=== PATIENT | male | born 1935 | race Caucasian/White ===

== ENCOUNTER 2019-03-30 16:42 | Inpatient (IN) | payer MEDICARE, OTHER ==
[2019-03-30 17:35] LABS: ABSOLUTE LYMPHOCYTES (AUTO) 0.8 10^3/uL (0.5-4.7); ABSOLUTE MONOCYTES (AUTO) 0.9 10^3/uL (0.1-1.4); ABSOLUTE NEUT (AUTO) 10.6 10^3/uL (1.7-8.2); BASOPHILS % (AUTO) 0.2 % (0-2); EOSINOPHILS % (AUTO) 0.1 % (0-6); HEMATOCRIT 41.2 % (37.9-51.0); HEMOGLOBIN 13.9 g/dL (13.5-17.0); LYMPHOCYTES % (AUTO) 6.2 % (13-45); MEAN CORPUSCULAR HEMOGLOBIN 32.7 pg (27.0-33.4); MEAN CORPUSCULAR HGB CONC 33.6 g/dL (32.0-36.0); MEAN CORPUSCULAR VOLUME 97 fl (80-97); MONOCYTES % (AUTO) 7.7 % (3-13); PLATELET COUNT 274 10^3/uL (150-450); RED BLOOD COUNT 4.25 10^6/uL (4.35-5.55); RED CELL DISTRIBUTION WIDTH 13.4 % (11.5-14.0); SEGMENTED NEUTROPHILS % (AUTO) 85.8 % (42-78); TOTAL CELLS COUNTED % (AUTO) 100 %; WHITE BLOOD COUNT 12.4 10^3/uL (4.0-10.5)
[2019-03-30] MEDS ORDERED: NORMAL SALINE IV ONE (17:49)
[2019-03-30 17:54] LABS: ALBUMIN 3.9 g/dL (3.5-5.0); ALKALINE PHOSPHATASE 46 U/L (38-126); ANION GAP 8 (5-19); ASPARTATE AMINO TRANSFERASE 295 U/L (17-59); BILIRUBIN,TOTAL 1.5 mg/dL (0.2-1.3); BLOOD UREA NITROGEN 25 mg/dL (7-20); CALCIUM 9.7 mg/dL (8.4-10.2); CARBON DIOXIDE 31 mmol/L (22-30); CHLORIDE 102 mmol/L (98-107); GLUCOSE 110 mg/dL (75-110); POTASSIUM 3.7 mmol/L (3.6-5.0); TOTAL PROTEIN 6.5 g/dL (6.3-8.2)
[2019-03-30 18:13] LABS: VENOUS BLOOD BASE EXCESS -1.3 mmol/L; VENOUS BLOOD HCO3 22.8 mmol/L (20-32); VENOUS BLOOD PCO2 36.3 mmHg (35-63); VENOUS BLOOD PH 7.42 (7.30-7.42)
[2019-03-30 18:27] LABS: AMORPHOUS SEDIMENT,URINE TRACE /HPF; APPEARANCE,URINE CLOUDY; BILIRUBIN,URINE NEGATIVE (NEGATIVE); COLOR,URINE AMBER; GLUCOSE, URINE NEGATIVE (NEGATIVE); KETONES,URINE TRACE mg/dL (NEGATIVE); LEUKOCYTE ESTERASE,URINE LARGE (NEGATIVE); NITRITE,URINE NEGATIVE (NEGATIVE); PROTEIN,URINE 100 mg/dL (NEGATIVE); UROBILINOGEN,URINE NEGATIVE mg/dL (<2.0)
--- NOTE | 2019-03-30 18:49 | RADIOLOGY REPORT (SQ) ---
EXAM DESCRIPTION: CT HEAD WITHOUT COMPLETED DATE/TIME: 03/30/2019 6:29 pm REASON FOR STUDY: fall/pain COMPARISON: None. TECHNIQUE: Axial images acquired through the brain without intravenous contrast. Images reviewed wi th bone, brain and subdural windows. Additional sagittal and coronal reconstructions were generated. Images stored on PACS. All CT scanners at this facility use dose modulation, iterative reconstruction, and/or weight based d osing when appropriate to reduce radiation dose to as low as reasonably achievable (ALARA). [facility]: Dose Right [facility]: CareDose [facility]: Dose Right [facility]: Teradose 4D [facility]: Smart [employer] RADIATION DOSE: CT Rad equipment meets quality standard of care and radiation dose reduction techniq ues were employed. CTDIvol: 53.2 mGy. DLP: 991 mGy-cm. mGy. LIMITATIONS: Artifact from DBS electrodes FINDINGS: VENTRICLES: Normal size and contour. CEREBRUM: No masses. No hemorrhage. No midline shift. No evidence for acute infarction. Normal gra y/white matter differentiation. No areas of low density in the white matter. CEREBELLUM: No masses. No hemorrhage. No alteration of density. No evidence for acute infarction. EXTRAAXIAL SPACES: No fluid collections. No masses. ORBITS AND GLOBE: No intra- or extraconal masses. Normal contour of globe without masses. CALVARIUM: No fracture. PARANASAL SINUSES: No fluid or mucosal thickening. SOFT TISSUES: No mass or hematoma. OTHER: Deep brain stimulation electrodes are present. . IMPRESSION: NO ACUTE INTRACRANIAL IMAGING FINDINGS. EVIDENCE OF ACUTE STROKE: NO. COMMENT: Quality ID # [id number]: Final reports with documentation of one or more dose reduction techniques (e.g., Automated exposure control, adjustment of the mA and/or kV according to patient size, use of iterative reconstruction technique) TECHNICAL DOCUMENTATION: JOB ID: [id number] [employer]- All Rights Reserved Reading location - IP/workstation name: [email or web address]
--- NOTE | 2019-03-30 18:58 | RADIOLOGY REPORT (SQ) ---
EXAM DESCRIPTION: PELVIS AP COMPLETED DATE/TIME: 03/30/2019 6:31 pm REASON FOR STUDY: fall/pain COMPARISON: None. NUMBER OF VIEWS: One view TECHNIQUE: AP Pelvis LIMITATIONS: None. FINDINGS: MINERALIZATION: Normal. HIPS: No acute fracture or dislocation. No worrisome bone lesions. PELVIS AND SACRUM: No acute fracture or dislocation. No worrisome bone lesions. PUBIS AND ISCHIUM: No acute fracture. LOWER LUMBAR SPINE: No significant findings as visualized. SOFT TISSUES: No findings. OTHER: No other significant finding. IMPRESSION: NEGATIVE STUDY OF THE PELVIS. COMMENT: Pelvic fractures are often occult on plain radiographs. If strong clinical suspicion for f racture, recommend CT or MR. TECHNICAL DOCUMENTATION: JOB ID: [id number] [employer]- All Rights Reserved Reading location - IP/workstation name: [email or web address]
[2019-03-30] MEDS ORDERED: CEFTRIAXONE 1 GM/D5W RTU 1 GM/50 ML RTUPB IV ONE (19:00)
[2019-03-30] MEDS ORDERED: MAG HYDROX/AL HYDROX/SIMETH SUSP 30 ML UDCUP PO PRN (19:28)
[2019-03-30] MEDS ORDERED: MAGNESIUM HYDROXIDE SUSP 30 ML UDCUP PO PRN (19:28)
[2019-03-30] MEDS ORDERED: IPRATROPIUM/ALBUTEROL 0.5-2.5 MG/3 ML AMPUL NEB PRN (19:28)
--- NOTE | 2019-03-30 19:40 | ER Document Report ---
ED Fall - General Chief Complaint: Fall Stated Complaint: FALL/LEFT FACIAL SWELLING Time Seen by Provider: 03/30/19 17:22 Primary Care Provider: BLADIMIR JOHNSON MD [Primary Care Provider] - Follow up as needed Mode of Arrival: Medic Information source: Patient, Relative TRAVEL OUTSIDE OF THE [place] IN LAST 30 DAYS: No - HPI Notes: Patient is brought in by family. Patient's home health nurse went to check on patient today and found him naked lying on the floor with incontinence of urine. Patient is still confused here and has patient denies any pain at this time. No shortness of breath. Daughter is at the bedside and helps provide some of the history. She states the patient was last seen normal at approximately 4:15 PM yesterday. She states at that time she brought some food to him and left. She states that he was found at 1 PM today with the altered mental status and lying on the floor. Patient has had no previous similar episodes. He has had no previous confusion. Symptoms since 1 PM today have been constant. Nothing is made it better or worse. They have been moderate to severe. There is no radiation of the symptoms. - Related data Allergies/Adverse Reactions: latex [Latex] Allergy (Severe, Verified 01/12/16 17:48) Sulfa (Sulfonamide Antibiotics) Allergy (Verified 01/12/16 17:48) Past Medical History - General Information source: Patient, Relative - Social History Smoking Status: Never Smoker Frequency of alcohol use: None Drug Abuse: None Family History: Reviewed & Not Pertinent Patient has suicidal ideation: No Patient has homicidal ideation: No - Past Medical History Cardiac Medical History: Reports: Hx Hypertension - medicated Denies: Hx Coronary Artery Disease, Hx Heart Attack Pulmonary Medical History: Denies: Hx Asthma, Hx Bronchitis, Hx COPD, Hx Pneumonia Neurological Medical History: Denies: Hx Cerebrovascular Accident, Hx Seizures GI Medical History: Denies: Hx Hepatitis, Hx Hiatal Hernia, Hx Ulcer Musculoskeletal Medical History: Reports Hx Arthritis Infectious Medical History: Denies: Hx Hepatitis Past Surgical History: Reports: Hx Appendectomy. Denies: Hx Open Heart Surgery, Hx Pacemaker - Immunizations Hx Diphtheria, Pertussis, Tetanus Vaccination: Yes Review of Systems - Review of Systems -: Yes ROS unobtainable due to patient's medical condition - Cannot obtain review of symptoms due to patient's altered mental status Physical Exam - Vital signs Vitals: Resp Pulse Ox 17 97 03/30/19 17:16 03/30/19 17:16 Interpretation: Normal - General General appearance: Appears well, Alert In distress: None - HEENT Head: Normocephalic, Other - Patient has a mildly tender area of ecchymosis just superior to the left zygomatic arch Eyes: Normal Pupils: PERRL - Respiratory Respiratory status: No respiratory distress Chest status: Nontender Breath sounds: Normal Chest palpation: Normal - Cardiovascular Rhythm: Regular Heart sounds: Normal auscultation Murmur: No - Abdominal Inspection: Normal Distension: No distension Bowel sounds: Normal Tenderness: Nontender Organomegaly: No organomegaly - Back Back: Normal, Nontender - Extremities General upper extremity: Normal inspection, Nontender, Normal color, Normal ROM, Normal temperature General lower extremity: Normal inspection, Nontender, Normal color, Normal temperature, Other - Patient appeared to have some mild right hip tenderness with range of motion.. No: Ezekiel's sign - Neurological Cognition: Confused Orientation: Disoriented to time Bart Coma Scale Eye Opening: Spontaneous [place] Coma Scale Verbal: Confused [place] Coma Scale Motor: Obeys Commands [place] Coma Scale Total: 14 Speech: Normal Motor strength normal: LUE, RUE, LLE, RLE Sensory: Normal - Psychological Associated symptoms: Normal affect, Normal mood - Skin Skin Temperature: Warm Skin Moisture: Dry Skin Color: Other - Patient has some scattered ecchymosis Course - Re-evaluation Re-evalutation: 03/30/19 19:44 Patient presents with a history of being confused. Patient was hallucinating at home found naked and lying in urine. Patient does not appear to have suffered any traumatic injuries from the fall. He does have an obvious urinary tract infection. He has an elevated lactate but has had normal vitals so far. He will be resuscitated with fluids and antibiotics and admitted for further observation and treatment. Head CT was unremarkable. - Vital Signs Vital signs: Temp Pulse Resp BP Pulse Ox 97.4 F 18 118/67 98 03/30/19 17:31 03/30/19 17:31 03/30/19 17:31 03/30/19 17:53 - Laboratory Result Diagrams: 03/30/19 17:30 03/30/19 17:30 Laboratory results interpreted by me: 03/30/19 03/30/19 03/30/19 17:30 17:30 17:30 WBC 12.4 H RBC 4.25 L Lymph % (Auto) 6.2 L Absolute Neuts (auto) 10.6 H Seg Neutrophils % 85.8 H Carbon Dioxide 31 H BUN 25 H Lactic Acid 3.9 H Total Bilirubin 1.5 H AST 295 H Urine Protein Urine Ketones Urine Blood Ur Leukocyte Esterase 03/30/19 17:58 WBC RBC Lymph % (Auto) Absolute Neuts (auto) Seg Neutrophils % Carbon Dioxide BUN Lactic Acid Total Bilirubin AST Urine Protein 100 H Urine Ketones TRACE H Urine Blood LARGE H Ur Leukocyte Esterase LARGE H - Diagnostic Test Radiology reviewed: Image reviewed, Reports reviewed - EKG Interpretation by Me EKG shows normal: Sinus rhythm Rate: Normal - 71 Rhythm: NSR Heart block present: 1st Degree Critical Care Note - Critical Care Note Total time excluding time spent on procedures (mins): 50 Comments: Approximately 50 minutes of critical care time were spent on this patient. This included multiple reassessments. It included multiple discussions with patient and family. It included discussion with consultants. It included reviewing imaging and laboratories. Discharge - Discharge Clinical Impression: UTI (urinary tract infection) Qualifiers: Urinary tract infection type: acute cystitis Hematuria presence: with hematuria Qualified Code(s): N30.01 - Acute cystitis with hematuria Sepsis Qualifiers: Sepsis type: sepsis due to unspecified organism Sepsis acute organ dysfunction status: with acute organ dysfunction Severe sepsis acute organ dysfunction type: encephalopathy Severe sepsis shock status: without septic shock Qualified Code(s): A41.9 - Sepsis, unspecified organism; R65.20 - Severe sepsis without septic shock; G93.40 - Encephalopathy, unspecified Condition: Critical Disposition: ADMITTED INPATIENT Admitting Provider: Medardo (Hospitalist) Unit Admitted: Telemetry Referrals: BLADIMIR JOHNSON MD [Primary Care Provider] - Follow up as needed
[2019-03-30 20:42] LABS: CREATINE KINASE MB 46.5 ng/mL (<4.55)
[2019-03-30 20:46] LABS: TROPONIN I 0.055 ng/mL
[2019-03-30] MEDS: HEPARIN SOD (PORCINE) 5,000 UNIT/ML 1 ML VIAL SUBCUT SCH (22:05)
[2019-03-30] MEDS ORDERED: CARBIDOPA/LEVODOPA 25-100 MG TABLET PO ONE (23:45)
[2019-03-30] MEDS: LORAZEPAM 1 MG TABLET PO PRN (23:52)
[2019-03-30] MEDS: TRAZODONE HCL 50 MG TABLET PO PRN (23:52)
[2019-03-31] MEDS: NORMAL SALINE 1000 ML 1,000 ML IV PRN ×2 (00:43→02:45)
--- NOTE | 2019-03-31 01:26 | PDOC H&P ---
History of Present Illness Admission Date/PCP: 03/30/19 19:51 BLADIMIR JOHNSON MD Patient complains of: Altered mental status History of Present Illness: ARA VARGHESE is a 83 year old male with a past medical history of diabetes, dyslipidemia, Parkinson's and debility requiring a walker for ambulation. He presents after being found at home alone on the floor with confusion, last seen normal 19 hours prior. He is brought to the emergency room for evaluation and found to have multiple contusions of the distal upper extremity, left thigh, confusion, leukocytosis, pyuria and rhabdomyolysis. He started on empiric antibiotics, IV fluids and referred to the hospitalist for admission. Patient is a poor historian unable to provide significant history and subsequently taken from the emergency department provider and gleaned from medication list. He com plains of left thigh pain Past Medical History Cardiac Medical History: Reports: Hyperlipidema, Hypertension - medicated Denies: Coronary Artery Disease, Myocardial Infarction Pulmonary Medical History: Denies: Asthma, Bronchitis, Chronic Obstructive Pulmonary Disease (COPD), Pneumonia Neurological Medical History: Denies: Seizures GI Medical History: Denies: Hepatitis, Hiatal Hernia Musculoskeltal Medical History: Reports: Arthritis Hematology: Denies: Anemia, Sickle Cell Disease Past Surgical History Past Surgical History: Reports: Appendectomy Denies: Pacemaker Social History Information Source: Patient, [facility] Records Lives with: Alone Smoking Status: Never Smoker Frequency of Alcohol Use: None Drugs: None - Advance Directive Resuscitation Status: Full Code Family History Family History: Other - Unobtainable Parental Family History Reviewed: Yes Children Family History Reviewed: Yes Sibling(s) Family History Reviewed.: Yes Medication/Allergy Home Medications: Atorvastatin Calcium [Lipitor 20 mg Tablet] 20 mg PO DAILY 03/30/19 Benazepril HCl [Lotensin 10 Mg Tablet] 10 mg PO DAILY 03/30/19 Carbidopa/Levodopa [Sinemet 25-100 mg Tablet] 2 tab PO NOON 03/30/19 Carbidopa/Levodopa [Sinemet 25-100 mg Tablet] 2 tab PO QAM 03/30/19 Carbidopa/Levodopa [Sinemet 25-100 mg Tablet] 2 tab PO QPM 03/30/19 Cholecalciferol (Vitamin D3) [Vitamin D3 2000 unit Tablet] 2,000 unit PO DAILY 03/30/19 Citalopram Hydrobromide [Celexa 20 mg Tablet] 20 mg PO DAILY 03/30/19 Finasteride [Proscar 5 mg Tablet] 5 mg PO DAILY 03/30/19 Lorazepam [Ativan 1 mg Tablet] 1 mg PO HSP PRN 03/30/19 Metformin HCl [Metformin HCl ER] 500 mg PO BID 03/30/19 Multivitamin [Multiple Vitamins] 1 each PO DAILY 03/30/19 [place]-3/Dha/Epa/Fish Oil [Fish Oil 1,000 mg Softgel] 1 each PO DAILY 03/30/19 Tamsulosin HCl [Flomax 0.4 mg Cap.sr] 0.4 mg PO BID 03/30/19 Trazodone HCl [Desyrel 50 mg Tablet] 50 mg PO DAILYP PRN 03/30/19 Allergies/Adverse Reactions: latex [Latex] Allergy (Severe, Verified 01/12/16 17:48) Sulfa (Sulfonamide Antibiotics) Allergy (Verified 01/12/16 17:48) Review of Systems ROS unobtainable: Due to mental status - Unobtainable Physical Exam Vital Signs: Temp Pulse Resp BP Pulse Ox 98.6 F 64 16 117/50 L 94 03/31/19 00:27 03/31/19 00:27 03/31/19 00:27 03/31/19 00:27 03/31/19 00:27 Intake & Output 03/29/19 03/30/19 03/31/19 11:59 11:59 11:59 Intake Total 2265 Output Total 0 Balance 2265 Weight 68.7 kg General appearance: PRESENT: cooperative, disheveled, mild distress, thin, well- developed, well-nourished Head exam: PRESENT: atraumatic, normocephalic Eye exam: PRESENT: conjunctiva pink, EOMI, PERRLA. ABSENT: scleral icterus Ear exam: PRESENT: normal external ear exam Mouth exam: PRESENT: dry mucosa, tongue midline Neck exam: ABSENT: carotid bruit, JVD, lymphadenopathy, thyromegaly Respiratory exam: PRESENT: clear to auscultation noah. ABSENT: rales, rhonchi, wheezes Cardiovascular exam: PRESENT: RRR. ABSENT: diastolic murmur, rubs, systolic murmur Pulses: PRESENT: normal dorsalis pedis pul Vascular exam: PRESENT: normal capillary refill GI/Abdominal exam: PRESENT: normal bowel sounds, soft. ABSENT: distended, guarding, mass, organolmegaly, rebound, tenderness Rectal exam: PRESENT: deferred Extremities exam: PRESENT: other - Multiple contusion, ecchymosis of the distal upper extremity and lower extremity. Musculoskeletal exam: PRESENT: full ROM. ABSENT: ambulatory, deformity, dislocation Neurological exam: PRESENT: alert, altered, awake, oriented to person, CN II-XII grossly intact. ABSENT: motor sensory deficit Psychiatric exam: PRESENT: appropriate affect, normal mood. ABSENT: homicidal ideation, suicidal ideation Skin exam: PRESENT: abrasion, erythema, other - Multiple contusion, ecchymosis of the distal upper extremity and lower extremity. Results Laboratory Results: 03/30/19 17:30 03/30/19 17:30 03/30/19 03/30/19 03/30/19 17:30 17:30 17:30 WBC 12.4 H RBC 4.25 L Hgb 13.9 Hct 41.2 MCV 97 MCH 32.7 MCHC 33.6 RDW 13.4 Plt Count 274 Seg Neutrophils % 85.8 H VBG pH VBG pCO2 VBG HCO3 VBG Base Excess Sodium 140.8 Potassium 3.7 Chloride 102 Carbon Dioxide 31 H Anion Gap 8 BUN 25 H Creatinine 0.86 Est GFR ( Amer) > 60 Glucose 110 Lactic Acid 3.9 H Calcium 9.7 Total Bilirubin 1.5 H AST 295 H Alkaline Phosphatase 46 Total Protein 6.5 Albumin 3.9 TSH Urine Color Urine Appearance Urine pH Ur Specific [place] Urine Protein Urine Glucose (UA) Urine Ketones Urine Blood Urine Nitrite Ur Leukocyte Esterase Urine WBC (Auto) Urine RBC (Auto) 03/30/19 03/30/19 03/30/19 17:30 17:58 17:58 WBC RBC Hgb Hct MCV MCH MCHC RDW Plt Count Seg Neutrophils % VBG pH 7.42 VBG pCO2 36.3 VBG HCO3 22.8 VBG Base Excess -1.3 Sodium Potassium Chloride Carbon Dioxide Anion Gap BUN Creatinine Est GFR ( Amer) Glucose Lactic Acid Calcium Total Bilirubin AST Alkaline Phosphatase Total Protein Albumin TSH 1.24 Urine Color TODD Urine Appearance CLOUDY Urine pH 5.0 Ur Specific [place] 1.020 Urine Protein 100 H Urine Glucose (UA) NEGATIVE Urine Ketones TRACE H Urine Blood LARGE H Urine Nitrite NEGATIVE Ur Leukocyte Esterase LARGE H Urine WBC (Auto) >182 Urine RBC (Auto) 79 03/30/19 03/30/19 20:04 22:52 WBC RBC Hgb Hct MCV MCH MCHC RDW Plt Count Seg Neutrophils % VBG pH VBG pCO2 VBG HCO3 VBG Base Excess Sodium Potassium Chloride Carbon Dioxide Anion Gap BUN Creatinine Est GFR ( Amer) Glucose Lactic Acid 3.3 H 2.3 H Calcium Total Bilirubin AST Alkaline Phosphatase Total Protein Albumin TSH Urine Color Urine Appearance Urine pH Ur Specific [place] Urine Protein Urine Glucose (UA) Urine Ketones Urine Blood Urine Nitrite Ur Leukocyte Esterase Urine WBC (Auto) Urine RBC (Auto) 03/30/19 03/30/19 03/30/19 17:30 17:30 20:04 Creatine Kinase 20090 H CK-MB (CK-2) 46.50 H Troponin I 0.053 0.055 Impressions: Head CT 03/30/19 17:43 IMPRESSION: NO ACUTE INTRACRANIAL IMAGING FINDINGS. EVIDENCE OF ACUTE STROKE: NO. Pelvis X-Ray 03/30/19 17:43 IMPRESSION: NEGATIVE STUDY OF THE PELVIS. Assessment and Plan - Diagnosis (1) UTI (urinary tract infection) Qualifiers: Urinary tract infection type: acute cystitis Hematuria presence: with hematuria Qualified Code(s): N30.01 - Acute cystitis with hematuria Is this a current diagnosis for this admission?: Yes Plan: No recent antibiotics, IV fluid challenge, IV Rocephin, follow-up blood and urine culture (2) Sepsis Qualifiers: Sepsis type: sepsis due to unspecified organism Sepsis acute organ dysfunct ion status: with acute organ dysfunction Severe sepsis acute organ dysfunction type: encephalopathy Severe sepsis shock status: without septic shock Qualified Code(s): A41.9 - Sepsis, unspecified organism; R65.20 - Severe sepsis without septic shock; G93.40 - Encephalopathy, unspecified Is this a current diagnosis for this admission?: Yes Plan: Secondary to UTI, IV fluid challenge, follow-up lactic acid (3) Rhabdomyolysis Is this a current diagnosis for this admission?: Yes Plan: Secondary to fall with prolonged stasis versus hypertonicity of Sinemet withdrawal. IV fluid challenge, follow-up chemistry, continue Sinemet (4) Parkinsons Is this a current diagnosis for this admission?: Yes Plan: Carbidopa levodopa resumption as soon as possible (5) Debility Is this a current diagnosis for this admission?: Yes Plan: Follow-up physical therapy evaluation - Time Time Spent with patient: 25-34 minutes - Inpatient Certification Medical Necessity: Need Close Monitoring Due to Risk of Patient Decompensation
[2019-03-31 03:10] LABS: ABSOLUTE EOSINOPHILS # (AUTO) 0.1 10^3/uL (0.0-0.6); ABSOLUTE LYMPHOCYTES (AUTO) 1.1 10^3/uL (0.5-4.7); ABSOLUTE MONOCYTES (AUTO) 0.8 10^3/uL (0.1-1.4); ABSOLUTE NEUT (AUTO) 6.9 10^3/uL (1.7-8.2); BASOPHILS % (AUTO) 0.3 % (0-2); EOSINOPHILS % (AUTO) 0.7 % (0-6); HEMATOCRIT 33.2 % (37.9-51.0); LYMPHOCYTES % (AUTO) 12.2 % (13-45); MEAN CORPUSCULAR HEMOGLOBIN 33.2 pg (27.0-33.4); MEAN CORPUSCULAR HGB CONC 34.5 g/dL (32.0-36.0); MEAN CORPUSCULAR VOLUME 96 fl (80-97); MONOCYTES % (AUTO) 8.9 % (3-13); PLATELET COUNT 202 10^3/uL (150-450); RED BLOOD COUNT 3.45 10^6/uL (4.35-5.55); RED CELL DISTRIBUTION WIDTH 13.4 % (11.5-14.0); SEGMENTED NEUTROPHILS % (AUTO) 77.9 % (42-78); TOTAL CELLS COUNTED % (AUTO) 100 %; WHITE BLOOD COUNT 8.9 10^3/uL (4.0-10.5)
[2019-03-31 03:11] LABS: HEMOGLOBIN 11.5 g/dL (13.5-17.0)
[2019-03-31 03:22] LABS: BLOOD UREA NITROGEN 19 mg/dL (7-20); CARBON DIOXIDE 29 mmol/L (22-30); GLUCOSE 96 mg/dL (75-110); POTASSIUM 3.5 mmol/L (3.6-5.0)
[2019-03-31 03:33] LABS: CREATINE KINASE MB 26.3 ng/mL (<4.55); TROPONIN I 0.046 ng/mL
[2019-03-31 03:38] LABS: CREATINE KINASE 9282 U/L (55-170)
[2019-03-31 03:46] LABS: CHLORIDE 109 mmol/L (98-107)
[2019-03-31 03:47] LABS: ANION GAP 2 (5-19)
[2019-03-31] MEDS: HEPARIN SOD (PORCINE) 5,000 UNIT/ML 1 ML VIAL SUBCUT SCH ×2 (06:02→14:19)
--- NOTE | 2019-03-31 07:15 | EKG REPORT ---
SEVERITY:- ABNORMAL ECG - SINUS RHYTHM VENTRICULAR PREMATURE COMPLEX FIRST DEGREE AV BLOCK INCOMPLETE LEFT BUNDLE BRANCH BLOCK PROBABLE LEFT VENTRICULAR HYPERTROPHY : Confirmed by: Dewayne Ang MD 31-Mar-2019 07:14:25
[2019-03-31] MEDS ORDERED: CARBIDOPA/LEVODOPA 25-100 MG TABLET PO SCH ×3 (08:00→18:00)
[2019-03-31] MEDS: CITALOPRAM HYDROBROMIDE 20 MG TABLET PO SCH (09:48)
[2019-03-31] MEDS: DOCUSATE SODIUM 100 MG CAPSULE PO SCH ×2 (09:48→17:49)
[2019-03-31] MEDS: BENAZEPRIL HCL 10 MG TABLET PO SCH (09:48)
[2019-03-31 09:49] LABS: CREATINE KINASE MB 21.9 ng/mL (<4.55); TROPONIN I 0.041 ng/mL
[2019-03-31] MEDS: CARBIDOPA/LEVODOPA 25-100 MG TABLET PO SCH ×3 (09:49→17:49)
[2019-03-31] MEDS: FINASTERIDE 5 MG TABLET PO SCH (09:49)
[2019-03-31] MEDS ORDERED: ATORVASTATIN CALCIUM 20 MG TABLET PO SCH (10:00)
[2019-03-31] MEDS: ACETAMINOPHEN 325 MG TABLET PO PRN (10:05)
--- NOTE | 2019-03-31 13:03 | CDI QUERY ---
CDI Query CDI Review: Dear Provider, To better reflect your patients severity of illness, morbidity, and resource utilization Please specify and document in the Progress Notes and Discharge Summary if you are monitoring / treating / evaluating any of the following conditions: The terms probable, suspected, likely, possible or still to be ruled out may be used if you are unable to determine the exact nature of a condition. Query Clinical indicators Metabolic encephalopathy? Toxic encephalopathy? Hallucination, visual? auditory? Unable to determine? Other? encephalopathy AMS hallucinating Thank you, Clinical Documentation Physician Advisors RIANA Ibanez RN, BSN RN Office [phone] Office [phone]
--- NOTE | 2019-03-31 16:40 | Progress Note ---
Provider Note Provider Note: Patient is a 83-year-old white male admitted after being found down in rhabdomyolysis. He has a history of Parkinson's disease and lives alone with home health nursing coming intermittently. Is found to have CPK markedly elevated and creatinine normal on admission. Patient seen and examined Continue dopaminergic medications Treat underlying cause of rhabdomyolysis/NMS which is UTI, give antibiotics PT/OT consulted Social work consult: Patient is interested in assisted living Please see Dr. Batres's H&P for full details of admission.
[2019-03-31] MEDS: CEFTRIAXONE 1 GM/D5W RTU 1 GM/50 ML RTUPB IV SCH (17:50)
[2019-03-31] MEDS: TRAZODONE HCL 50 MG TABLET PO PRN (23:28)
[2019-03-31] MEDS: LORAZEPAM 1 MG TABLET PO PRN (23:28)
[2019-04-01] MEDS: HEPARIN SOD (PORCINE) 5,000 UNIT/ML 1 ML VIAL SUBCUT SCH ×4 (02:51→21:43)
[2019-04-01] MEDS ORDERED: RINGERS SOLUTION,LACTATED 1,000 ML IV PRN (09:35)
[2019-04-01] MEDS: CARBIDOPA/LEVODOPA 25-100 MG TABLET PO SCH ×3 (10:47→18:51)
[2019-04-01] MEDS: BENAZEPRIL HCL 10 MG TABLET PO SCH (10:47)
[2019-04-01] MEDS: CITALOPRAM HYDROBROMIDE 20 MG TABLET PO SCH (10:47)
[2019-04-01] MEDS: DOCUSATE SODIUM 100 MG CAPSULE PO SCH ×2 (10:47→18:51)
[2019-04-01] MEDS: FINASTERIDE 5 MG TABLET PO SCH (10:48)
--- NOTE | 2019-04-01 16:52 | PDOC PROGRESS REPORT ---
Subjective Progress Note for:: 04/01/19 Subjective:: Patient is a 83-year-old elderly white male admitted for rhabdomyolysis after being found down after a fall at home. Patient lives alone but states he has home health nursing that comes in intermittently, however he does admit he is alone for the majority of the day and overnight. Patient has longstanding Parkinson's disease and was found to have UTI on admission. 04/01: Patient is now ambulatory working with physical therapy who is recommending SNF. Patient is agreeable to rehab and possibly assisted living thereafter. He is not oriented to time at all but is oriented to self place and disposition. No new complaints. Potassium is low which we are repleting. Reason For Visit: UTI PARKINSONS AMS Physical Exam Vital Signs: Temp Pulse Resp BP Pulse Ox 97.5 F 58 L 14 137/55 H 95 04/01/19 08:00 04/01/19 09:00 04/01/19 09:00 04/01/19 08:00 04/01/19 09:00 Intake & Output 03/31/19 04/01/19 04/02/19 06:59 06:59 06:59 Intake Total 4265 546 Output Total 0 330 Balance 4265 216 Weight 69.2 kg 69.8 kg General appearance: PRESENT: no acute distress, thin, well-developed, well- nourished Head exam: PRESENT: atraumatic, normocephalic Eye exam: PRESENT: conjunctiva pink Mouth exam: PRESENT: moist Respiratory exam: PRESENT: clear to auscultation noah. ABSENT: rales, rhonchi, wheezes Cardiovascular exam: PRESENT: RRR. ABSENT: diastolic murmur, rubs, systolic murmur GI/Abdominal exam: PRESENT: normal bowel sounds, soft. ABSENT: distended, guar ding, mass, organolmegaly, rebound, tenderness Musculoskeletal exam: PRESENT: ambulatory Neurological exam: PRESENT: alert, awake, oriented to person, oriented to place. ABSENT: oriented to time, oriented to situation Psychiatric exam: PRESENT: appropriate affect, normal mood Skin exam: PRESENT: dry, intact, warm Results Laboratory Results: 03/31/19 02:48 03/31/19 02:48 03/30/19 03/30/19 03/30/19 17:30 17:30 20:04 Creatine Kinase 59207 H CK-MB (CK-2) 46.50 H Troponin I 0.053 0.055 03/31/19 03/31/19 03/31/19 02:48 02:48 08:34 Creatine Kinase 9282 H 7192 H CK-MB (CK-2) 26.30 H Troponin I 0.046 03/31/19 08:34 Creatine Kinase CK-MB (CK-2) 21.90 H Troponin I 0.041 Impressions: Head CT 03/30/19 17:43 IMPRESSION: NO ACUTE INTRACRANIAL IMAGING FINDINGS. EVIDENCE OF ACUTE STROKE: NO. Pelvis X-Ray 03/30/19 17:43 IMPRESSION: NEGATIVE STUDY OF THE PELVIS. Assessment and Plan - Diagnosis (1) Rhabdomyolysis Is this a current diagnosis for this admission?: Yes Plan: -Secondary to fall with prolonged stasis versus hypertonicity of Sinemet withdrawal, neuroleptic malignant syndrome -IV fluid -Trend BMP Continue Sinemet Trend CPK (2) UTI (urinary tract infection) Qualifiers: Urinary tract infection type: acute cystitis Hematuria presence: with he maturia Qualified Code(s): N30.01 - Acute cystitis with hematuria Is this a current diagnosis for this admission?: Yes Plan: No recent antibiotics -IV fluids -IV Rocephin -blood cx and urine cx (3) Sepsis Qualifiers: Sepsis type: sepsis due to unspecified organism Sepsis acute organ dysfunction status: with acute organ dysfunction Severe sepsis acute organ dysfunction type: encephalopathy Severe sepsis shock status: without septic shock Qualified Code(s): A41.9 - Sepsis, unspecified organism; R65.20 - Severe sepsis without septic shock; G93.40 - Encephalopathy, unspecified Is this a current diagnosis for this admission?: Yes Plan: -Secondary to UTI, IV fluid -lactic acid (4) Parkinsons Is this a current diagnosis for this admission?: Yes Plan: -Carbidopa levodopa resumption (5) Debility Is this a current diagnosis for this admission?: Yes Plan: -Physical therapy evaluation - Time Time Spent with patient: 25-34 minutes Medications reviewed and adjusted accordingly: Yes Anticipated discharge: SNF Within: within 48 hours - Inpatient Certification Medical Necessity: Significant Comorbidiites Make Outpatient Treatment Too Risky - Extensive discussion with patient's daughter today regarding need for SNF. She is in agreement with this. She is also in agreement the patient will need [id number] care at home or to be cared for at an assisted living facility instead. She wants to speak with the social media assistant tomorrow. She has left her phone number on the board in the room., Need For IV Fluids
[2019-04-01] MEDS: CEFTRIAXONE 1 GM/D5W RTU 1 GM/50 ML RTUPB IV SCH (18:52)
[2019-04-01] MEDS: LORAZEPAM 1 MG TABLET PO PRN (21:56)
[2019-04-01] MEDS: TRAZODONE HCL 50 MG TABLET PO PRN (21:56)
[2019-04-02] MEDS: HEPARIN SOD (PORCINE) 5,000 UNIT/ML 1 ML VIAL SUBCUT SCH ×3 (05:26→22:00)
[2019-04-02] MEDS: CARBIDOPA/LEVODOPA 25-100 MG TABLET PO SCH ×3 (08:56→17:18)
[2019-04-02] MEDS: BENAZEPRIL HCL 10 MG TABLET PO SCH (10:21)
[2019-04-02] MEDS: CITALOPRAM HYDROBROMIDE 20 MG TABLET PO SCH (10:22)
[2019-04-02] MEDS: DOCUSATE SODIUM 100 MG CAPSULE PO SCH ×2 (10:22→17:19)
[2019-04-02] MEDS: FINASTERIDE 5 MG TABLET PO SCH (10:22)
[2019-04-02 11:50] LABS: ANION GAP 5 (5-19); BLOOD UREA NITROGEN 13 mg/dL (7-20); CALCIUM 8.1 mg/dL (8.4-10.2); CARBON DIOXIDE 29 mmol/L (22-30); CHLORIDE 105 mmol/L (98-107); GLUCOSE 128 mg/dL (75-110); POTASSIUM 3.7 mmol/L (3.6-5.0)
--- NOTE | 2019-04-02 15:23 | PDOC PROGRESS REPORT ---
Subjective Progress Note for:: 04/02/19 Subjective:: Patient is a 83-year-old elderly white male admitted for rhabdomyolysis after being found down after a fall at home. Patient lives alone but states he has home health nursing that comes in intermittently, however he does admit he is alone for the majority of the day and overnight. Patient has longstanding Parkinson's disease and was found to have UTI on admission. 04/01: Patient is now ambulatory working with physical therapy who is recommending SNF. Patient is agreeable to rehab and possibly assisted living thereafter. He is not oriented to time at all but is oriented to self place and disposition. No new complaints. Potassium is low which we are repleting. 04/02: Patient much more alert and awake today, sitting on the edge of the bed but intermittently slumping backwards in a very odd posture stating he is not very comfortable. He is agreeable to going to rehab facility and agrees to work with the therapist when asked to do so. I long discussion with his daughter yesterday and she is in agreement with patient going to rehab facility at least in the short-term. Urine culture is growing Morganella which is sensitive to multiple antibiotics. Reason For Visit: UTI [facility] AMS Physical Exam Vital Signs: Temp Pulse Resp BP Pulse Ox 98.0 F 59 L 18 152/78 H 95 04/02/19 11:29 04/02/19 11:29 04/02/19 11:29 04/02/19 11:29 04/02/19 11:29 Intake & Output 04/01/19 04/02/19 04/03/19 06:59 06:59 06:59 Intake Total 546 632 640 Output Total 330 730 525 Balance 216 -98 115 Weight 69.8 kg 69.5 kg General appearance: PRESENT: no acute distress, well-developed, well-nourished Head exam: PRESENT: atraumatic, normocephalic Eye exam: PRESENT: conjunctiva pink Mouth exam: PRESENT: moist Respiratory exam: PRESENT: clear to auscultation noah. ABSENT: rales, rhonchi, wheezes Cardiovascular exam: PRESENT: RRR. ABSENT: diastolic murmur, rubs, systolic murmur GI/Abdominal exam: PRESENT: normal bowel sounds, soft. ABSENT: distended, guarding, mass, organolmegaly, rebound, tenderness Neurological exam: PRESENT: alert, awake, oriented to person, oriented to place. ABSENT: oriented to time, oriented to situation Psychiatric exam: PRESENT: appropriate affect, normal mood Skin exam: PRESENT: dry, intact, warm Results Laboratory Results: 03/31/19 02:48 04/02/19 10:57 04/02/19 10:57 Sodium 139.2 Potassium 3.7 Chloride 105 Carbon Dioxide 29 Anion Gap 5 BUN 13 Creatinine 0.65 Est GFR ( Amer) > 60 Glucose 128 H Calcium 8.1 L 03/30/19 03/30/19 03/30/19 17:30 17:30 20:04 Creatine Kinase 46541 H CK-MB (CK-2) 46.50 H Troponin I 0.053 0.055 03/31/19 03/31/19 03/31/19 02:48 02:48 08:34 Creatine Kinase 9282 H 7192 H CK-MB (CK-2) 26.30 H Troponin I 0.046 03/31/19 04/02/19 08:34 10:57 Creatine Kinase CK-MB (CK-2) 21.90 H 4.90 H Troponin I 0.041 Impressions: Head CT 03/30/19 17:43 IMPRESSION: NO ACUTE INTRACRANIAL IMAGING FINDINGS. EVIDENCE OF ACUTE STROKE: NO. Pelvis X-Ray 03/30/19 17:43 IMPRESSION: NEGATIVE STUDY OF THE PELVIS. Assessment and Plan - Diagnosis (1) Rhabdomyolysis Is this a current diagnosis for this admission?: Yes Plan: -Secondary to fall with prolonged stasis versus hypertonicity of Sinemet withdrawal, neuroleptic malignant syndrome -IV fluid -Trend BMP Continue Sinemet Trend CPK; resolved/resolving (2) UTI (urinary tract infection) Qualifiers: Urinary tract infection type: acute cystitis Hematuria presence: with hematuria Qualified Code(s): N30.01 - Acute cystitis with hematuria Is this a current diagnosis for this admission?: Yes Plan: No recent antibiotics -IV fluids -IV Rocephin -blood cx negative and urine cx grew Morganella (3) Sepsis Qualifiers: Sepsis type: sepsis due to unspecified organism Sepsis acute organ dysfunction status: with acute organ dysfunction Severe sepsis acute organ dysfunction type: encephalopathy Severe sepsis shock status: without septic shock Qualified Code(s): A41.9 - Sepsis, unspecified organism; R65.20 - Severe sepsis without septic shock; G93.40 - Encephalopathy, unspecified Is this a current diagnosis for this admission?: Yes Plan: -Secondary to UTI, IV fluid -lactic acid Resolved (4) Parkinsons Is this a current diagnosis for this admission?: Yes (5) Debility Is this a current diagnosis for this admission?: Yes Plan: -Physical therapy evaluation showed patient requires extensive rehab at discharge, recommended SNF - Time Time Spent with patient: 15-24 minutes Anticipated discharge: SNF Within: within 48 hours - Inpatient Certification Medical Necessity: Need Close Monitoring Due to Risk of Patient Decompensation, Need for IV Antibiotics
[2019-04-02] MEDS: CEFTRIAXONE 1 GM/D5W RTU 1 GM/50 ML RTUPB IV SCH (17:18)
[2019-04-03] MEDS: HEPARIN SOD (PORCINE) 5,000 UNIT/ML 1 ML VIAL SUBCUT SCH ×3 (06:55→22:23)
[2019-04-03] MEDS: CARBIDOPA/LEVODOPA 25-100 MG TABLET PO SCH ×3 (07:50→17:36)
[2019-04-03] MEDS: CITALOPRAM HYDROBROMIDE 20 MG TABLET PO SCH (10:50)
[2019-04-03] MEDS: BENAZEPRIL HCL 10 MG TABLET PO SCH (10:50)
[2019-04-03] MEDS: DOCUSATE SODIUM 100 MG CAPSULE PO SCH ×2 (10:50→17:37)
[2019-04-03] MEDS: FINASTERIDE 5 MG TABLET PO SCH (10:50)
[2019-04-03] MEDS: LORAZEPAM 1 MG TABLET PO PRN (17:03)
[2019-04-03] MEDS: CEFTRIAXONE 1 GM/D5W RTU 1 GM/50 ML RTUPB IV SCH (17:36)
--- NOTE | 2019-04-03 17:46 | PDOC PROGRESS REPORT ---
Subjective Progress Note for:: 04/03/19 Subjective:: Patient is a 83-year-old elderly white male admitted for rhabdomyolysis after being found down after a fall at home. Patient lives alone but states he has home health nursing that comes in intermittently, however he does admit he is alone for the majority of the day and overnight. Patient has longstanding Parkinson's disease and was found to have UTI on admission. 04/01: Patient is now ambulatory working with physical therapy who is recommending SNF. Patient is agreeable to rehab and possibly assisted living thereafter. He is not oriented to time at all but is oriented to self place and disposition. No new complaints. Potassium is low which we are repleting. 04/02: Patient much more alert and awake today, sitting on the edge of the bed but intermittently slumping backwards in a very odd posture stating he is not very comfortable. He is agreeable to going to rehab facility and agrees to work with the therapist when asked to do so. I long discussion with his daughter yesterday and she is in agreement with patient going to rehab facility at least in the short-term. Urine culture is growing Morganella which is sensitive to multiple antibiotics. 04/03: Patient is fully alert today and is actually becoming a bit agitated and anxious. He is trying to get up and walk around the room and pulling at his lines frequently. I discussed with RN to keep a close eye on him and there is oral Ativan available to help keep the patient calm which we should use sparingly. We are currently process of looking for SNF and patient can be discharged to SNF whenever a bed is located. No new complaints otherwise. Reason For Visit: UTI [facility] AMS Physical Exam Vital Signs: Temp Pulse Resp BP Pulse Ox 97.2 F 82 17 186/92 H 94 04/03/19 14:57 04/03/19 14:57 04/03/19 14:57 04/03/19 14:57 04/03/19 14:57 Intake & Output 04/02/19 04/03/19 04/04/19 06:59 06:59 06:59 Intake Total 632 2060 380 Output Total 730 1575 300 Balance -98 485 80 Weight 69.5 kg 70.8 kg General appearance: PRESENT: no acute distress, well-developed, well-nourished Head exam: PRESENT: atraumatic, normocephalic Eye exam: PRESENT: conjunctiva pink Cardiovascular exam: PRESENT: RRR. ABSENT: diastolic murmur, rubs, systolic murmur GI/Abdominal exam: PRESENT: normal bowel sounds, soft. ABSENT: distended, guarding, mass, organolmegaly, rebound, tenderness Neurological exam: PRESENT: alert, awake, oriented to person, oriented to place. ABSENT: oriented to time, oriented to situation Psychiatric exam: PRESENT: agitated Focused psych exam: PRESENT: restlessness Skin exam: PRESENT: dry, intact, warm Results Laboratory Results: 03/31/19 02:48 04/02/19 10:57 03/30/19 17:58 Catheterized Urine Urine Culture - Final Morganella Morganii 03/30/19 03/30/19 03/30/19 17:30 17:30 20:04 Creatine Kinase 03119 H CK-MB (CK-2) 46.50 H Troponin I 0.053 0.055 03/31/19 03/31/19 03/31/19 02:48 02:48 08:34 Creatine Kinase 9282 H 7192 H CK-MB (CK-2) 26.30 H Troponin I 0.046 03/31/19 04/02/19 04/03/19 08:34 10:57 10:25 Creatine Kinase CK-MB (CK-2) 21.90 H 4.90 H 4.90 H Troponin I 0.041 Impressions: Head CT 03/30/19 17:43 IMPRESSION: NO ACUTE INTRACRANIAL IMAGING FINDINGS. EVIDENCE OF ACUTE STROKE: NO. Pelvis X-Ray 03/30/19 17:43 IMPRESSION: NEGATIVE STUDY OF THE PELVIS. Assessment and Plan - Diagnosis (1) Rhabdomyolysis Is this a current diagnosis for this admission?: Yes Plan: -Secondary to fall with prolonged stasis versus hypertonicity of Sinemet withdrawal, neuroleptic malignant syndrome -IV fluid -Trend BMP Continue Sinemet Trend CPK Resolved (2) UTI (urinary tract infection) Qualifiers: Urinary tract infection type: acute cystitis Hematuria presence: with hematuria Qualified Code(s): N30.01 - Acute cystitis with hematuria Is this a current diagnosis for this admission?: Yes Plan: No recent antibiotics -IV fluids -IV Rocephin until 04/04 -blood cx negative and urine cx grew Morganella Resolved/resolving (3) Sepsis Qualifiers: Sepsis type: sepsis due to unspecified organism Sepsis acute organ dysfunction status: with acute organ dysfunction Severe sepsis acute organ dysfunction type: encephalopathy Severe sepsis shock status: without septic shock Qualified Code(s): A41.9 - Sepsis, unspecified organism; R65.20 - Severe sepsis without septic shock; G93.40 - Encephalopathy, unspecified Is this a current diagnosis for this admission?: Yes (4) Parkinsons Is this a current diagnosis for this admission?: Yes (5) Debility Is this a current diagnosis for this admission?: Yes Plan: -Physical therapy evaluation showed patient requires extensive rehab at discharge, recommended SNF - Time Time Spent with patient: 15-24 minutes Anticipated discharge: SNF Within: within 48 hours - Inpatient Certification Medical Necessity: Significant Comorbidiites Make Outpatient Treatment Too Risky, Need Close Monitoring Due to Risk of Patient Decompensation
[2019-04-03] MEDS: TRAZODONE HCL 50 MG TABLET PO PRN (18:36)
[2019-04-04] MEDS: LORAZEPAM 1 MG TABLET PO PRN (02:08)
[2019-04-04] MEDS: LORAZEPAM INJ 2 MG/1 ML VIAL IV PRN ×3 (02:30→17:41)
[2019-04-04] MEDS: LORAZEPAM INJ 2 MG/1 ML VIAL ONE ×2 (02:30→06:30)
[2019-04-04] MEDS: CHLORPROMAZINE HCL INJ 25 MG/1 ML AMPULE ONE ×2 (03:05→06:31)
[2019-04-04] MEDS ORDERED: CHLORPROMAZINE HCL INJ 25 MG/1 ML AMPULE IV PRN (05:45)
[2019-04-04] MEDS: HEPARIN SOD (PORCINE) 5,000 UNIT/ML 1 ML VIAL SUBCUT SCH ×3 (05:51→21:10)
[2019-04-04] MEDS: CARBIDOPA/LEVODOPA 25-100 MG TABLET PO SCH ×3 (07:27→17:47)
[2019-04-04] MEDS: CITALOPRAM HYDROBROMIDE 20 MG TABLET PO SCH (11:41)
[2019-04-04] MEDS: BENAZEPRIL HCL 10 MG TABLET PO SCH (11:41)
[2019-04-04] MEDS: FINASTERIDE 5 MG TABLET PO SCH (11:41)
[2019-04-04] MEDS: DOCUSATE SODIUM 100 MG CAPSULE PO SCH ×2 (11:41→17:47)
--- NOTE | 2019-04-04 16:42 | PDOC PROGRESS REPORT ---
Subjective Progress Note for:: 04/04/19 Subjective:: Patient is a 83-year-old elderly white male admitted for rhabdomyolysis after being found down after a fall at home. Patient lives alone but states he has home health nursing that comes in intermittently, however he does admit he is alone for the majority of the day and overnight. Patient has longstanding Parkinson's disease and was found to have UTI on admission. 04/01: Patient is now ambulatory working with physical therapy who is recommending SNF. Patient is agreeable to rehab and possibly assisted living thereafter. He is not oriented to time at all but is oriented to self place and disposition. No new complaints. Potassium is low which we are repleting. 04/02: Patient much more alert and awake today, sitting on the edge of the bed but intermittently slumping backwards in a very odd posture stating he is not very comfortable. He is agreeable to going to rehab facility and agrees to work with the therapist when asked to do so. I long discussion with his daughter yesterday and she is in agreement with patient going to rehab facility at least in the short-term. Urine culture is growing Morganella which is sensitive to multiple antibiotics. 04/03: Patient is fully alert today and is actually becoming a bit agitated and anxious. He is trying to get up and walk around the room and pulling at his lines frequently. I discussed with RN to keep a close eye on him and there is oral Ativan available to help keep the patient calm which we should use sparingly. We are currently process of looking for SNF and patient can be discharged to SNF whenever a bed is located. No new complaints otherwise. 04/04: Patient more agitated and anxious, had to be put in soft wrist restraints as he is a severe fall risk and has been pulling at his lines. Patient may be best served in a locked memory unit after discharge if he is unable or unwilling to complete therapy. No new complaints though patient has baseline confused. Per RN, patient is retaining urine. Will insert a Rashid to decompress bladder. Will also restart finasteride home med. Reason For Visit: UTI [facility] AMS Physical Exam Vital Signs: Temp Pulse Resp BP Pulse Ox 98.8 F 67 17 168/81 H 96 04/04/19 12:04/04/19 12:04/04/19 12:04/04/19 12:00 04/04/19 12:00 Intake & Output 04/03/19 04/04/19 04/05/19 06:59 06:59 06:59 Intake Total 2060 710 Output Total 1575 825 Balance 485 -115 Weight 70.8 kg 70.3 kg General appearance: PRESENT: no acute distress, well-developed, well-nourished Head exam: PRESENT: atraumatic, normocephalic Eye exam: PRESENT: conjunctiva pink Mouth exam: PRESENT: moist Respiratory exam: PRESENT: clear to auscultation noah. ABSENT: rales, rhonchi, wheezes Cardiovascular exam: PRESENT: RRR. ABSENT: diastolic murmur, rubs, systolic murmur GI/Abdominal exam: PRESENT: normal bowel sounds, soft. ABSENT: distended, guarding, mass, organolmegaly, rebound, tenderness Extremities exam: ABSENT: pedal edema Neurological exam: PRESENT: alert, awake, oriented to person Psychiatric exam: PRESENT: agitated Skin exam: PRESENT: dry, intact, warm Results Laboratory Results: 03/31/19 02:48 04/02/19 10:57 03/30/19 03/30/19 03/30/19 17:30 17:30 20:04 Creatine Kinase 67702 H CK-MB (CK-2) 46.50 H Troponin I 0.053 0.055 03/31/19 03/31/19 03/31/19 02:48 02:48 08:34 Creatine Kinase 9282 H 7192 H CK-MB (CK-2) 26.30 H Troponin I 0.046 03/31/19 04/02/19 04/03/19 08:34 10:57 10:25 Creatine Kinase CK-MB (CK-2) 21.90 H 4.90 H 4.90 H Troponin I 0.041 Impressions: Head CT 03/30/19 17:43 IMPRESSION: NO ACUTE INTRACRANIAL IMAGING FINDINGS. EVIDENCE OF ACUTE STROKE: NO. Pelvis X-Ray 03/30/19 17:43 IMPRESSION: NEGATIVE STUDY OF THE PELVIS. Assessment and Plan - Diagnosis (1) Rhabdomyolysis Is this a current diagnosis for this admission?: Yes Plan: -Secondary to fall with prolonged stasis versus hypertonicity of Sinemet withdrawal, neuroleptic malignant syndrome -IV fluid -Trend BMP Continue Sinemet Trend CPK Resolved (2) UTI (urinary tract infection) Qualifiers: Urinary tract infection type: acute cystitis Hematuria presence: with hematuria Qualified Code(s): N30.01 - Acute cystitis with hematuria Is this a current diagnosis for this admission?: Yes (3) Sepsis Qualifiers: Sepsis type: sepsis due to unspecified organism Sepsis acute organ dysfunction status: with acute organ dysfunction Severe sepsis acute organ dysfunction type: encephalopathy Severe sepsis shock status: without septic shock Qualified Code(s): A41.9 - Sepsis, unspecified organism; R65.20 - Severe sepsis without septic shock; G93.40 - Encephalopathy, unspecified Is this a current diagnosis for this admission?: Yes (4) Parkinsons Is this a current diagnosis for this admission?: Yes Plan: -Carbidopa levodopa resumption 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 (5) Debility Is this a current diagnosis for this admission?: Yes - Time Time Spent with patient: 25-34 minutes Medications reviewed and adjusted accordingly: Yes - Inpatient Certification Based on my medical assessment, after consideration of the patient's comorbidities, presenting symptoms, or acuity I expect that the services needed warrant INPATIENT care.: Yes I certify that my determination is in accordance with my understanding of Medicare's requirements for reasonable and necessary INPATIENT services [42 CFR 412.3e].: Yes Medical Necessity: Significant Comorbidiites Make Outpatient Treatment Too Risky, Need Close Monitoring Due to Risk of Patient Decompensation, Need for IV Antibiotics
[2019-04-05] MEDS: HEPARIN SOD (PORCINE) 5,000 UNIT/ML 1 ML VIAL SUBCUT SCH ×3 (06:45→23:45)
[2019-04-05] MEDS: CHOLECALCIFEROL (D3) 1,000 UNIT (25 MCG) TABLET PO SCH (13:03)
[2019-04-05] MEDS: MULTIVITAMIN TABLET PO SCH (13:03)
[2019-04-05] MEDS: DOCUSATE SODIUM 100 MG CAPSULE PO SCH ×2 (13:03→18:32)
[2019-04-05] MEDS: TAMSULOSIN HCL 0.4 MG CAP.SR.24H PO SCH ×3 (13:03→18:32)
[2019-04-05] MEDS: FINASTERIDE 5 MG TABLET PO SCH (13:03)
[2019-04-05] MEDS: CITALOPRAM HYDROBROMIDE 20 MG TABLET PO SCH (13:03)
[2019-04-05] MEDS: OMEGA-3 ACID ETHYL ESTERS 1 GM CAPSULE PO SCH (13:03)
[2019-04-05] MEDS: CARBIDOPA/LEVODOPA 25-100 MG TABLET PO SCH ×3 (13:06→22:00)
[2019-04-05] MEDS: BENAZEPRIL HCL 10 MG TABLET PO SCH (13:09)
--- NOTE | 2019-04-05 14:13 | PDOC PROGRESS REPORT ---
Subjective Progress Note for:: 04/05/19 Subjective:: Patient is a 83-year-old elderly white male admitted for rhabdomyolysis after being found down after a fall at home. Patient lives alone but states he has home health nursing that comes in intermittently, however he does admit he is alone for the majority of the day and overnight. Patient has longstanding Parkinson's disease and was found to have UTI on admission. 04/01: Patient is now ambulatory working with physical therapy who is recommending SNF. Patient is agreeable to rehab and possibly assisted living thereafter. He is not oriented to time at all but is oriented to self place and disposition. No new complaints. Potassium is low which we are repleting. 04/02: Patient much more alert and awake today, sitting on the edge of the bed but intermittently slumping backwards in a very odd posture stating he is not very comfortable. He is agreeable to going to rehab facility and agrees to work with the therapist when asked to do so. I long discussion with his daughter yesterday and she is in agreement with patient going to rehab facility at least in the short-term. Urine culture is growing Morganella which is sensitive to multiple antibiotics. 04/03: Patient is fully alert today and is actually becoming a bit agitated and anxious. He is trying to get up and walk around the room and pulling at his lines frequently. I discussed with RN to keep a close eye on him and there is oral Ativan available to help keep the patient calm which we should use sparingly. We are currently process of looking for SNF and patient can be discharged to SNF whenever a bed is located. No new complaints otherwise. 04/04: Patient more agitated and anxious, had to be put in soft wrist restraints as he is a severe fall risk and has been pulling at his lines. Patient may be best served in a locked memory unit after discharge if he is unable or unwilling to complete therapy. No new complaints though patient has baseline confused. Per RN, patient is retaining urine. Will insert a Rashid to decompress bladder. Will also restart finasteride home med. 04/05: Patient is mentating very well, appears to be at baseline mentation. Due to his chronic memory problems, he is unclear about if and when he ambulates at home. He does state that he spends nearly all of his time in bed on his back after asking him in multiple different ways. He has no new complaints. We await a SNF bed. Reason For Visit: UTI [facility] AMS Physical Exam Vital Signs: Temp Pulse Resp BP Pulse Ox 98.1 F 73 15 178/85 H 100 04/05/19 11:34 04/05/19 11:34 04/05/19 11:34 04/05/19 11:34 04/05/19 11:34 Intake & Output 04/04/19 04/05/19 04/06/19 06:59 06:59 06:59 Intake Total 710 Output Total 825 1200 100 Balance -115 -1200 -100 Weight 70.3 kg 66.9 kg General appearance: PRESENT: no acute distress, well-developed, well-nourished Head exam: PRESENT: atraumatic, normocephalic Eye exam: PRESENT: conjunctiva pink Mouth exam: PRESENT: moist Respiratory exam: PRESENT: clear to auscultation noah. ABSENT: rales, rhonchi, wheezes Cardiovascular exam: PRESENT: RRR. ABSENT: diastolic murmur, rubs, systolic murmur GI/Abdominal exam: PRESENT: normal bowel sounds, soft. ABSENT: distended, guarding, mass, organolmegaly, rebound, tenderness Neurological exam: PRESENT: alert, awake, oriented to person Psychiatric exam: PRESENT: appropriate affect, normal mood Skin exam: PRESENT: dry, intact, warm, other - Various decubitus ulcers unstageable and I-II as previously mentioned, present on admission Results Laboratory Results: 03/31/19 02:48 04/02/19 10:57 03/30/19 20:04 Blood Blood Culture - Final NO GROWTH IN 5 DAYS 03/30/19 17:22 Blood Blood Culture - Final NO GROWTH IN 5 DAYS 03/30/19 03/30/19 03/30/19 17:30 17:30 20:04 Creatine Kinase 57886 H CK-MB (CK-2) 46.50 H Troponin I 0.053 0.055 03/31/19 03/31/19 03/31/19 02:48 02:48 08:34 Creatine Kinase 9282 H 7192 H CK-MB (CK-2) 26.30 H Troponin I 0.046 03/31/19 04/02/19 04/03/19 08:34 10:57 10:25 Creatine Kinase CK-MB (CK-2) 21.90 H 4.90 H 4.90 H Troponin I 0.041 Impressions: Head CT 03/30/19 17:43 IMPRESSION: NO ACUTE INTRACRANIAL IMAGING FINDINGS. EVIDENCE OF ACUTE STROKE: NO. Pelvis X-Ray 03/30/19 17:43 IMPRESSION: NEGATIVE STUDY OF THE PELVIS. Assessment and Plan - Diagnosis (1) Rhabdomyolysis Is this a current diagnosis for this admission?: Yes Plan: -Secondary to fall with prolonged stasis versus hypertonicity of Sinemet withdrawal, neuroleptic malignant syndrome -IV fluid -Trend BMP Continue Sinemet Trend CPK Resolved Needs SNF placement for rehab (2) UTI (urinary tract infection) Qualifiers: Urinary tract infection type: acute cystitis Hematuria presence: with hematuria Qualified Code(s): N30.01 - Acute cystitis with hematuria Is this a current diagnosis for this admission?: Yes (3) Sepsis Qualifiers: Sepsis type: sepsis due to unspecified organism Sepsis acute organ dysfunction status: with acute organ dysfunction Severe sepsis acute organ dysfunction type: encephalopathy Severe sepsis shock status: without septic shock Qualified Code(s): A41.9 - Sepsis, unspecified organism; R65.20 - Severe sepsis without septic shock; G93.40 - Encephalopathy, unspecified Is this a current diagnosis for this admission?: Yes (4) Parkinsons Is this a current diagnosis for this admission?: Yes (5) Debility Is this a current diagnosis for this admission?: Yes - Time Time Spent with patient: 15-24 minutes Medications reviewed and adjusted accordingly: Yes Anticipated discharge: SNF Within: within 48 hours - Inpatient Certification Medical Necessity: Risk of Complication if Not Cared For in Hospital
--- NOTE | 2019-04-05 15:25 | PDOC PROGRESS REPORT ---
Subjective Subjective:: Patient is a 83-year-old elderly white male admitted for rhabdomyolysis after being found down after a fall at home. Patient lives alone but states he has home health nursing that comes in intermittently, however he does admit he is alone for the majority of the day and overnight. Patient has longstanding Parkinson's disease and was found to have UTI on admission. 04/01: Patient is now ambulatory working with physical therapy who is recommending SNF. Patient is agreeable to rehab and possibly assisted living thereafter. He is not oriented to time at all but is oriented to self place and disposition. No new complaints. Potassium is low which we are repleting. 04/02: Patient much more alert and awake today, sitting on the edge of the bed but intermittently slumping backwards in a very odd posture stating he is not very comfortable. He is agreeable to going to rehab facility and agrees to work with the therapist when asked to do so. I long discussion with his daughter yesterday and she is in agreement with patient going to rehab facility at least in the short-term. Urine culture is growing Morganella which is sensitive to multiple antibiotics. 04/03: Patient is fully alert today and is actually becoming a bit agitated and anxious. He is trying to get up and walk around the room and pulling at his lines frequently. I discussed with RN to keep a close eye on him and there is oral Ativan available to help keep the patient calm which we should use sparingly. We are currently process of looking for SNF and patient can be discharged to SNF whenever a bed is located. No new complaints otherwise. 04/04: Patient more agitated and anxious, had to be put in soft wrist restraints as he is a severe fall risk and has been pulling at his lines. Patient may be best served in a locked memory unit after discharge if he is unable or unwilling to complete therapy. No new complaints though patient has baseline confused. Per RN, patient is retaining urine. Will insert a Rashid to decompress bladder. Will also restart finasteride home med. 04/05: Patient continues to be confused which appears to be possibly near his baseline but this is unclear. He is certainly more calm today and is not pu lling at his lines or Rashid. Discussed with nursing we will try taking him out of restraints as he seems much more redirectable since Rashid was placed and bladder was emptied sufficiently. He was retaining well over 500 cc yesterday per nursing. He has no new complaints and would like to have his restraints removed. Reason For Visit: UTI PARKINSONS AMS Physical Exam Vital Signs: Temp Pulse Resp BP Pulse Ox 98.1 F 73 15 178/85 H 100 04/05/19 11:34 04/05/19 11:34 04/05/19 11:34 04/05/19 11:34 04/05/19 11:34 Intake & Output 04/04/19 04/05/19 04/06/19 06:59 06:59 06:59 Intake Total 710 Output Total 825 1200 100 Balance -115 -1200 -100 Weight 70.3 kg 66.9 kg General appearance: PRESENT: no acute distress, well-developed, well-nourished Head exam: PRESENT: atraumatic, normocephalic Eye exam: PRESENT: conjunctiva pink. ABSENT: scleral icterus Mouth exam: PRESENT: moist Respiratory exam: PRESENT: clear to auscultation noah. ABSENT: rales, rhonchi, wheezes Cardiovascular exam: PRESENT: RRR. ABSENT: diastolic murmur, rubs, systolic murmur GI/Abdominal exam: PRESENT: normal bowel sounds, soft. ABSENT: distended, guarding, mass, organolmegaly, rebound, tenderness Neurological exam: PRESENT: alert, awake, oriented to person Psychiatric exam: PRESENT: appropriate affect, normal mood Skin exam: PRESENT: dry, intact, warm Results Laboratory Results: 03/31/19 02:48 04/02/19 10:57 03/30/19 20:04 Blood Blood Culture - Final NO GROWTH IN 5 DAYS 03/30/19 17:22 Blood Blood Culture - Final NO GROWTH IN 5 DAYS 03/30/19 03/30/19 03/30/19 17:30 17:30 20:04 Creatine Kinase 64969 H CK-MB (CK-2) 46.50 H Troponin I 0.053 0.055 03/31/19 03/31/19 03/31/19 02:48 02:48 08:34 Creatine Kinase 9282 H 7192 H CK-MB (CK-2) 26.30 H Troponin I 0.046 03/31/19 04/02/19 04/03/19 08:34 10:57 10:25 Creatine Kinase CK-MB (CK-2) 21.90 H 4.90 H 4.90 H Troponin I 0.041 Impressions: Head CT 03/30/19 17:43 IMPRESSION: NO ACUTE INTRACRANIAL IMAGING FINDINGS. EVIDENCE OF ACUTE STROKE: NO. Pelvis X-Ray 03/30/19 17:43 IMPRESSION: NEGATIVE STUDY OF THE PELVIS. Assessment and Plan - Diagnosis (1) UTI (urinary tract infection) Qualifiers: Urinary tract infection type: acute cystitis Hematuria presence: with hematuria Qualified Code(s): N30.01 - Acute cystitis with hematuria Is this a current diagnosis for this admission?: Yes (2) Rhabdomyolysis Is this a current diagnosis for this admission?: Yes Plan: -Secondary to fall with prolonged stasis versus hypertonicity of Sinemet withdrawal, neuroleptic malignant syndrome -IV fluid -Trend BMP Continue Sinemet Trend CPK Resolved Needs SNF placement for rehab (3) Acute urinary retention Is this a current diagnosis for this admission?: Yes Plan: Retaining greater than 500 cc urine Rashid catheter placed 04/04 Flomax and finasteride restarted from home meds Needs urology follow-up outpatient (4) Sepsis Qualifiers: Sepsis type: sepsis due to unspecified organism Sepsis acute organ dysfunction status: with acute organ dysfunction Severe sepsis acute organ dysfunction type: encephalopathy Severe sepsis shock status: without septic shock Qualified Code(s): A41.9 - Sepsis, unspecified organism; R65.20 - Severe sepsis without septic shock; G93.40 - Encephalopathy, unspecified Is this a current diagnosis for this admission?: Yes (5) Parkinsons Is this a current diagnosis for this admission?: Yes (6) Debility Is this a current diagnosis for this admission?: Yes - Time Time Spent with patient: 25-34 minutes Medications reviewed and adjusted accordingly: Yes Anticipated discharge: SNF Within: within 48 hours - Inpatient Certification Medical Necessity: Significant Comorbidiites Make Outpatient Treatment Too Risky, Need Close Monitoring Due to Risk of Patient Decompensation
[2019-04-06] MEDS: HEPARIN SOD (PORCINE) 5,000 UNIT/ML 1 ML VIAL SUBCUT SCH ×3 (05:53→22:14)
[2019-04-06] MEDS: TAMSULOSIN HCL 0.4 MG CAP.SR.24H PO SCH ×2 (09:51→18:54)
[2019-04-06] MEDS: CITALOPRAM HYDROBROMIDE 20 MG TABLET PO SCH (09:51)
[2019-04-06] MEDS: BENAZEPRIL HCL 10 MG TABLET PO SCH (09:51)
[2019-04-06] MEDS: CHOLECALCIFEROL (D3) 1,000 UNIT (25 MCG) TABLET PO SCH (09:51)
[2019-04-06] MEDS: MULTIVITAMIN TABLET PO SCH (09:51)
[2019-04-06] MEDS: OMEGA-3 ACID ETHYL ESTERS 1 GM CAPSULE PO SCH (09:51)
[2019-04-06] MEDS: DOCUSATE SODIUM 100 MG CAPSULE PO SCH ×2 (09:51→18:54)
[2019-04-06] MEDS: FINASTERIDE 5 MG TABLET PO SCH (09:51)
[2019-04-06] MEDS: CARBIDOPA/LEVODOPA 25-100 MG TABLET PO SCH ×3 (10:12→18:54)
[2019-04-06] MEDS: ACETAMINOPHEN 325 MG TABLET PO PRN (12:05)
--- NOTE | 2019-04-06 15:16 | PDOC PROGRESS REPORT ---
Subjective Progress Note for:: 04/06/19 Subjective:: Patient has no complaints today. Feels well. Was taken off restraints yesterday evening and appears calm this morning. Reason For Visit: UTI PARKINSONS AMS Physical Exam Vital Signs: Temp Pulse Resp BP Pulse Ox 98.2 F 75 15 137/74 H 94 04/06/19 11:17 04/06/19 11:17 04/06/19 11:17 04/06/19 11:17 04/06/19 11:17 Intake & Output 04/05/19 04/06/19 04/07/19 06:59 06:59 06:59 Intake Total 360 Output Total 1200 425 Balance -1200 -65 Weight 66.9 kg 67.9 kg General appearance: PRESENT: no acute distress, cooperative Neck exam: ABSENT: JVD Respiratory exam: PRESENT: clear to auscultation noah GI/Abdominal exam: PRESENT: soft. ABSENT: distended, tenderness Neurological exam: PRESENT: alert, awake, oriented to person, oriented to place, oriented to time Psychiatric exam: ABSENT: agitated, anxious Results Laboratory Results: 03/31/19 02:48 04/02/19 10:57 03/30/19 03/30/19 03/30/19 17:30 17:30 20:04 Creatine Kinase 32932 H CK-MB (CK-2) 46.50 H Troponin I 0.053 0.055 03/31/19 03/31/19 03/31/19 02:48 02:48 08:34 Creatine Kinase 9282 H 7192 H CK-MB (CK-2) 26.30 H Troponin I 0.046 03/31/19 04/02/19 04/03/19 08:34 10:57 10:25 Creatine Kinase CK-MB (CK-2) 21.90 H 4.90 H 4.90 H Troponin I 0.041 Impressions: Head CT 03/30/19 17:43 IMPRESSION: NO ACUTE INTRACRANIAL IMAGING FINDINGS. EVIDENCE OF ACUTE STROKE: NO. Pelvis X-Ray 03/30/19 17:43 IMPRESSION: NEGATIVE STUDY OF THE PELVIS. Assessment and Plan - Diagnosis (1) UTI (urinary tract infection) Qualifiers: Urinary tract infection type: acute cystitis Hematuria presence: with hematuria Qualified Code(s): N30.01 - Acute cystitis with hematuria Is this a current diagnosis for this admission?: Yes Plan: Urine culture grew Morganella has completed treatment with IV Rocephin (2) Acute urinary retention Is this a current diagnosis for this admission?: Yes Plan: Patient was noted to be retaining greater than 500 cc urine Rashid catheter placed 04/04 Flomax and finasteride restarted from home meds Needs urology follow-up outpatient (3) Debility Is this a current diagnosis for this admission?: Yes Plan: -Physical therapy evaluation showed patient requires extensive rehab at discharge, recommended SNF Still currently awaiting SNF placement (4) Parkinsons Is this a current diagnosis for this admission?: Yes Plan: -Carbidopa levodopa resumption 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 May have had some delirium with agitation yesterday but currently resolved. (5) Rhabdomyolysis Is this a current diagnosis for this admission?: Yes Plan: -Secondary to fall with prolonged stasis versus hypertonicity of Sinemet withdrawal, neuroleptic malignant syndrome Resolved following IV fluids - Time Time Spent with patient: Less than 15 minutes
[2019-04-06] MEDS: TRAZODONE HCL 50 MG TABLET PO PRN (22:16)
[2019-04-07] MEDS: HEPARIN SOD (PORCINE) 5,000 UNIT/ML 1 ML VIAL SUBCUT SCH ×3 (06:22→21:30)
[2019-04-07] MEDS: CITALOPRAM HYDROBROMIDE 20 MG TABLET PO SCH (11:47)
[2019-04-07] MEDS: CHOLECALCIFEROL (D3) 1,000 UNIT (25 MCG) TABLET PO SCH (11:47)
[2019-04-07] MEDS: TAMSULOSIN HCL 0.4 MG CAP.SR.24H PO SCH ×2 (11:47→18:42)
[2019-04-07] MEDS: FINASTERIDE 5 MG TABLET PO SCH (11:48)
[2019-04-07] MEDS: DOCUSATE SODIUM 100 MG CAPSULE PO SCH ×2 (11:48→18:42)
[2019-04-07] MEDS: OMEGA-3 ACID ETHYL ESTERS 1 GM CAPSULE PO SCH (11:48)
[2019-04-07] MEDS: MULTIVITAMIN TABLET PO SCH (11:48)
[2019-04-07] MEDS: CARBIDOPA/LEVODOPA 25-100 MG TABLET PO SCH ×3 (11:50→18:41)
[2019-04-07] MEDS: BENAZEPRIL HCL 10 MG TABLET PO SCH (12:04)
[2019-04-07] MEDS ORDERED: BISACODYL 10 MG SUPP.RECT PR ONE (14:30)
--- NOTE | 2019-04-07 15:07 | PDOC TRANSFER SUMMARY ---
Impression - Admit/DC Date/PCP Admission Date/Primary Care Provider: 03/30/19 19:51 BLADIMIR JOHNSON MD Discharge Date: 04/07/19 - Discharge Diagnosis (1) UTI (urinary tract infection) Is this a current diagnosis for this admission?: Yes (2) Acute urinary retention Is this a current diagnosis for this admission?: Yes (3) Debility Is this a current diagnosis for this admission?: Yes (4) Parkinsons Is this a current diagnosis for this admission?: Yes (5) Rhabdomyolysis Is this a current diagnosis for this admission?: Yes - Assessment Summary: Patient was admitted after being on the floor for prolonged period of time found to have rhabdomyolysis. He received IV fluids. Initial CK was 11,000 and subsequently trended down with fluid administration. His rhabdomyolysis was thought to be secondary to his fall and prolonged immobilization on the floor. Of note patient did receive head CT and pelvic x-rays which were unrevealing for evaluation of his falls. Patient also completed treatment for urinary tract infection with Rocephin for several days. Patient was noted to have acute urinary retention and a Rashid was placed. Patient will need to follow-up with a urologist in the outpatient setting for reevaluation and voiding trial. Patient is stable for discharge at this time. (1) UTI (urinary tract infection) Qualifiers: Urinary tract infection type: acute cystitis Hematuria presence: with hematuria Qualified Code(s): N30.01 - Acute cystitis with hematuria Is this a current diagnosis for this admission?: Yes Plan: Urine culture grew Morganella has completed treatment with IV Rocephin (2) Acute urinary retention Is this a current diagnosis for this admission?: Yes Plan: Patient was noted to be retaining greater than 500 cc urine Rashid catheter placed 04/04 Flomax and finasteride restarted from home meds Needs urology follow-up outpatient-can contact Dr. Pola Sanders for follow up or go through patient's insurance. 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 May have had some delirium with agitation yesterday but currently resolved. (5) Rhabdomyolysis Is this a current diagnosis for this admission?: Yes Plan: -Secondary to fall with prolonged stasis Resolved following IV fluids - Additional Information Resuscitation Status: Full Code Referrals: BLADIMIR JOHNSON MD [Primary Care Provider] - 04/15/19 9:30 am POLA SANDERS MD [NO LOCAL MD] - Home Medications: Atorvastatin Calcium [Lipitor 20 mg Tablet] 20 mg PO DAILY 03/30/19 Benazepril HCl [Lotensin 10 mg Tablet] 10 mg PO DAILY 03/30/19 Carbidopa/Levodopa [Sinemet 25-100 mg Tablet] 2 tab PO TID@08,12,18 03/30/19 Cholecalciferol (Vitamin D3) [Vitamin D3 2000 unit Tablet] 2,000 unit PO DAILY 03/30/19 Citalopram Hydrobromide [Celexa 20 mg Tablet] 20 mg PO DAILY 03/30/19 Finasteride [Proscar 5 mg Tablet] 5 mg PO DAILY 03/30/19 Metformin HCl [Metformin HCl ER] 500 mg PO BID 03/30/19 Multivitamin [Multiple Vitamins] 1 each PO DAILY 03/30/19 [place]-3/Dha/Epa/Fish Oil [Fish Oil 1,000 mg Softgel] 1 each PO DAILY 03/30/19 Tamsulosin HCl [Flomax 0.4 mg Cap.sr] 0.4 mg PO BID 03/30/19 Trazodone HCl [Desyrel 50 mg Tablet] 50 mg PO DAILYP PRN 03/30/19 Acetaminophen [Tylenol 325 mg Tablet] 650 mg PO Q4HP PRN tablet 04/07/19 Docusate Sodium [Colace 100 mg Capsule] 100 mg PO BID capsule 04/07/19 Mag Hydrox/Al Hydrox/Simeth [Maalox Plus Susp 30 Udcup] 30 ml PO Q6HP PRN udc 04/07/19 History of Present Illiness History of Present Illness: ARA VARGHESE is a 84 year old male with a past medical history of diabetes, dyslipidemia, Parkinson's with some underlying dementia and debility requiring a walker for ambulation. He presents after being found at home alone on the floor with confusion, last seen normal 19 hours prior. He is brought to the emergency room for evaluation and found to have multiple contusions of the distal upper extremity, left thigh, confusion, leukocytosis, pyuria and rhabdomyolysis. He started on empiric antibiotics, IV fluids and referred to the hospitalist for admission. Patient is a poor historian unable to provide significant history and subsequently taken from the emergency department provider and gleaned from medication list. He complains of left thigh pain Physical Exam Vital Signs: Temp Pulse Resp BP Pulse Ox 98.3 F 68 16 136/72 H 97 04/07/19 11:41 04/07/19 11:41 04/07/19 11:41 04/07/19 11:41 04/07/19 11:41 Intake & Output 04/06/19 04/07/19 04/08/19 06:59 06:59 06:59 Intake Total 360 220 Output Total 425 680 Balance -65 -460 Weight 67.9 kg 66.8 kg General appearance: PRESENT: no acute distress, cooperative Neck exam: ABSENT: JVD Respiratory exam: PRESENT: clear to auscultation noah Cardiovascular exam: PRESENT: +S1, +S2 GI/Abdominal exam: PRESENT: normal bowel sounds, soft. ABSENT: distended, firm, guarding, tenderness Neurological exam: PRESENT: alert, awake, oriented to person, oriented to place. ABSENT: oriented to time, oriented to situation Results Laboratory Results: WBC 8.9 10^3/uL (4.0-10.5) 03/31/19 02:48 RBC 3.45 10^6/uL (4.35-5.55) L 03/31/19 02:48 Hgb 11.5 g/dL (13.5-17.0) L D 03/31/19 02:48 Hct 33.2 % (37.9-51.0) L 03/31/19 02:48 MCV 96 fl (80-97) 03/31/19 02:48 MCH 33.2 pg (27.0-33.4) 03/31/19 02:48 MCHC 34.5 g/dL (32.0-36.0) 03/31/19 02:48 RDW 13.4 % (11.5-14.0) 03/31/19 02:48 Plt Count 202 10^3/uL (150-450) 03/31/19 02:48 Lymph % (Auto) 12.2 % (13-45) L 03/31/19 02:48 [place] % (Auto) 8.9 % (3-13) 03/31/19 02:48 Eos % (Auto) 0.7 % (0-6) 03/31/19 02:48 Baso % (Auto) 0.3 % (0-2) 03/31/19 02:48 Absolute Neuts (auto) 6.9 10^3/uL (1.7-8.2) 03/31/19 02:48 Absolute Lymphs (auto) 1.1 10^3/uL (0.5-4.7) 03/31/19 02:48 Absolute Monos (auto) 0.8 10^3/uL (0.1-1.4) 03/31/19 02:48 Absolute Eos (auto) 0.1 10^3/uL (0.0-0.6) 03/31/19 02:48 Absolute Basos (auto) 0.0 10^3/uL (0.0-0.2) 03/31/19 02:48 Seg Neutrophils % 77.9 % (42-78) 03/31/19 02:48 VBG pH 7.42 (7.30-7.42) 03/30/19 17:58 VBG pCO2 36.3 mmHg (35-63) 03/30/19 17:58 VBG HCO3 22.8 mmol/L (20-32) 03/30/19 17:58 VBG Base Excess -1.3 mmol/L 03/30/19 17:58 Sodium 139.2 mmol/L (137-145) 04/02/19 10:57 Potassium 3.7 mmol/L (3.6-5.0) 04/02/19 10:57 Chloride 105 mmol/L (98-107) 04/02/19 10:57 Carbon Dioxide 29 mmol/L (22-30) 04/02/19 10:57 Anion Gap 5 (5-19) 04/02/19 10:57 BUN 13 mg/dL (7-20) 04/02/19 10:57 Creatinine 0.65 mg/dL (0.52-1.25) 04/02/19 10:57 Est GFR ( Amer) > 60 (>60) 04/02/19 10:57 Est GFR (MDRD) Non-Af > 60 (>60) 04/02/19 10:57 Glucose 128 mg/dL (75-110) H 04/02/19 10:57 Lactic Acid 2.3 mmol/L (0.7-2.1) H 03/30/19 22:52 Calcium 8.1 mg/dL (8.4-10.2) L 04/02/19 10:57 Total Bilirubin 1.5 mg/dL (0.2-1.3) H 03/30/19 17:30 Direct Bilirubin 0.0 mg/dL (0.0-0.4) 03/30/19 17:30 Neonat Total Bilirubin Not Reportable 03/30/19 17:30 Neonat Direct Bilirubin Not Reportable 03/30/19 17:30 Neonat Indirect Bili Not Reportable 03/30/19 17:30 AST 295 U/L (17-59) H 03/30/19 17:30 ALT 27 U/L (<50) 03/30/19 17:30 Alkaline Phosphatase 46 U/L (38-126) 03/30/19 17:30 Creatine Kinase 7192 U/L (55-170) H 03/31/19 08:34 CK-MB (CK-2) 4.90 ng/mL (<4.55) H 04/03/19 10:25 Troponin I 0.041 ng/mL 03/31/19 08:34 Total Protein 6.5 g/dL (6.3-8.2) 03/30/19 17:30 Albumin 3.9 g/dL (3.5-5.0) 03/30/19 17:30 TSH 1.24 uIU/mL (0.47-4.68) 03/30/19 17:30 Urine Color TODD 03/30/19 17:58 Urine Appearance CLOUDY 03/30/19 17:58 Urine pH 5.0 (5.0-9.0) 03/30/19 17:58 Ur Specific [place] 1.020 03/30/19 17:58 Urine Protein 100 mg/dL (NEGATIVE) H 03/30/19 17:58 Urine Glucose (UA) NEGATIVE mg/dL (NEGATIVE) 03/30/19 17:58 Urine Ketones TRACE mg/dL (NEGATIVE) H 03/30/19 17:58 Urine Blood LARGE (NEGATIVE) H 03/30/19 17:58 Urine Nitrite NEGATIVE (NEGATIVE) 03/30/19 17:58 Urine Bilirubin NEGATIVE (NEGATIVE) 03/30/19 17:58 Urine Urobilinogen NEGATIVE mg/dL (<2.0) 03/30/19 17:58 Ur Leukocyte Esterase LARGE (NEGATIVE) H 03/30/19 17:58 Urine WBC (Auto) >182 /HPF 03/30/19 17:58 Urine RBC (Auto) 79 /HPF 03/30/19 17:58 Urine Bacteria (Auto) 3+ /HPF 03/30/19 17:58 Squamous Epi Cells Auto 1 /HPF 03/30/19 17:58 Amorphous Sediment Auto TRACE /HPF 03/30/19 17:58 Urine Mucus (Auto) MANY /LPF 03/30/19 17:58 Urine Ascorbic Acid NEGATIVE (NEGATIVE) 03/30/19 17:58 03/30/19 03/30/19 03/31/19 17:30 20:04 02:48 CK-MB (CK-2) 46.50 H 26.30 H Troponin I 0.053 0.055 0.046 03/31/19 04/02/19 04/03/19 08:34 10:57 10:25 CK-MB (CK-2) 21.90 H 4.90 H 4.90 H Troponin I 0.041 Impressions: Head CT 03/30/19 17:43 IMPRESSION: NO ACUTE INTRACRANIAL IMAGING FINDINGS. EVIDENCE OF ACUTE STROKE: NO. Pelvis X-Ray 03/30/19 17:43 IMPRESSION: NEGATIVE STUDY OF THE PELVIS. Plan Time Spent: Less than 30 Minutes Stroke Is this a Stroke Patient?: No Acute Heart Failure - Is this a Heart Failure Patient?: No
[2019-04-08] MEDS: HEPARIN SOD (PORCINE) 5,000 UNIT/ML 1 ML VIAL SUBCUT SCH ×3 (05:26→22:00)
[2019-04-08] MEDS: CARBIDOPA/LEVODOPA 25-100 MG TABLET PO SCH ×3 (07:53→17:58)
[2019-04-08] MEDS: MULTIVITAMIN TABLET PO SCH (10:21)
[2019-04-08] MEDS: TAMSULOSIN HCL 0.4 MG CAP.SR.24H PO SCH ×2 (10:21→17:58)
[2019-04-08] MEDS: CHOLECALCIFEROL (D3) 1,000 UNIT (25 MCG) TABLET PO SCH (10:21)
[2019-04-08] MEDS: OMEGA-3 ACID ETHYL ESTERS 1 GM CAPSULE PO SCH (10:21)
[2019-04-08] MEDS: BENAZEPRIL HCL 10 MG TABLET PO SCH (10:22)
[2019-04-08] MEDS: FINASTERIDE 5 MG TABLET PO SCH (10:22)
[2019-04-08] MEDS: DOCUSATE SODIUM 100 MG CAPSULE PO SCH ×2 (10:22→17:58)
[2019-04-08] MEDS: CITALOPRAM HYDROBROMIDE 20 MG TABLET PO SCH (10:22)
--- NOTE | 2019-04-08 12:19 | Progress Note ---
Provider Note Provider Note: Patient has no complaints today. Vitals are stable. Continue current management for Parkinson's disease. Patient will require 30 days or less of rehabilitation at SNF given patient's debility. Awaiting placement at SNF. Medically discharged.
[2019-04-09] MEDS: HEPARIN SOD (PORCINE) 5,000 UNIT/ML 1 ML VIAL SUBCUT SCH ×2 (05:01→13:32)
--- NOTE | 2019-04-09 09:00 | CDI QUERY ---
CDI Query CDI Review: [id number] Dear Provider, To better reflect your patients severity of illness, morbidity, and resource utilization Please specify and document in the Progress Notes and Discharge Summary if you are monitoring / treating / evaluating any of the following conditions: The terms probable, suspected, likely, possible or still to be ruled out may be used if you are unable to determine the exact nature of a condition. Query Clinical indicators Metabolic encephalopathy? Toxic encephalopathy? Hallucination, visual? auditory? Unable to determine? Other? encephalopathy AMS hallucinating Thank you, Clinical Documentation Physician Advisors RIANA Ibanez RN, BSN RN Office [phone] Office [phone]
[2019-04-09] MEDS: TAMSULOSIN HCL 0.4 MG CAP.SR.24H PO SCH (09:38)
[2019-04-09] MEDS: MULTIVITAMIN TABLET PO SCH (09:38)
[2019-04-09] MEDS: BENAZEPRIL HCL 10 MG TABLET PO SCH (09:38)
[2019-04-09] MEDS: FINASTERIDE 5 MG TABLET PO SCH (09:38)
[2019-04-09] MEDS: CARBIDOPA/LEVODOPA 25-100 MG TABLET PO SCH ×2 (09:38→12:42)
[2019-04-09] MEDS: CITALOPRAM HYDROBROMIDE 20 MG TABLET PO SCH (09:38)
[2019-04-09] MEDS: DOCUSATE SODIUM 100 MG CAPSULE PO SCH (09:38)
[2019-04-09] MEDS: CHOLECALCIFEROL (D3) 1,000 UNIT (25 MCG) TABLET PO SCH (09:38)
[2019-04-09] MEDS: OMEGA-3 ACID ETHYL ESTERS 1 GM CAPSULE PO SCH (09:39)
--- NOTE | 2019-04-09 12:09 | Progress Note ---
Provider Note Provider Note: Patient has no complaints today. Walked with physical therapy and required assistance. Still awaiting placement in SNF given patient is debilitated with Parkinson's disease. Continues to remain medically discharged. Vital signs are stable at this time.
[2019-04-09 13:04] VITALS: BP 114/59
== END 2019-04-09 17:10 | DRG 690 ==
LOC: ER 16:42 → EH 19:51 → 4N 21:32
PROVIDERS: ADMIT Internal Medicine; ATTEND Internal Medicine
DX: N30.01 Acute cystitis with hematuria (principal); M62.82 Rhabdomyolysis; E78.5 Hyperlipidemia, unspecified; R33.9 Retention of urine, unspecified; I10 Essential (primary) hypertension; M19.90 Unspecified osteoarthritis, unspecified site; E11.9 Type 2 diabetes mellitus without complications; G20 Parkinson's disease; B96.4 Proteus (mirabilis) (morganii) as the cause of diseases classified elsewhere; S00.83XA Contusion of other part of head, initial encounter; S50.10XA Contusion of unspecified forearm, initial encounter; W19.XXXA Unspecified fall, initial encounter; Y93.9 Activity, unspecified; Y92.009 Unspecified place in unspecified non-institutional (private) residence as the place of occurrence of the external cause; Z88.2 Allergy status to sulfonamides; Z91.040 Latex allergy status; Z79.899 Other long term (current) drug therapy; Z90.49 Acquired absence of other specified parts of digestive tract; S70.12XA Contusion of left thigh, initial encounter; Z79.84 Long term (current) use of oral hypoglycemic drugs; Z60.2 Problems related to living alone; Z78.1 Physical restraint status
CPT/HCPCS: 36415; 70450; 72170; 80048; 80053; 81001; 82550; 82553; 82803; 83605; 84443; 84484; 85025; 87040; 87086; 87088; 87186; 93005; 93010; 96361; 96365; 99291; C1758; J0696; J1644; J2060; J3230; J3490; J7030; J7120

== ENCOUNTER 2019-05-22 21:00 | Emergency (ER) | payer MEDICARE, OTHER ==
--- NOTE | 2019-05-22 21:47 | RADIOLOGY REPORT (SQ) ---
EXAM DESCRIPTION: CT HEAD WITHOUT IV CONTRAST COMPLETED DATE/TME: 05/22/2019 00:00 CLINICAL HISTORY: 84 years, Male, Fall, AMS COMPARISON: Prior study from 03/30/2019 TECHNIQUE: Noncontrast CT head was performed. Coronal and sagittal reformations were acquired. Images stored on PACS. All CT scanners at this facility use dose modulation, iterative reconstruction, and/or weight based dosing when appropriate to reduce radiation dose to as low as reasonably achievable (ALARA). [facility]: Dose Right [facility]: CareDose [facility]: Dose Right [facility]: Teradose 4D [facility]: [employer] LIMITATIONS: None. FINDINGS: Evaluation of the brain parenchyma reveals mild periventricular and patchy cortical white matter low attenuation. Deep brain stimulator leads terminate about the subthalamic nuclei bilaterally. No acute intracranial hemorrhage, mass effect, or extra-axial fluid is seen. The ventricles and sulcal spaces are moderately enlarged. Globes and orbits show no acute abnormality. Mild opacity is noted about the ethmoidal air cells. There is S-shaped deviation of the nasal septum. Calcifications are noted about the parasellar carotid arteries. No depressed skull fractures. IMPRESSION: No acute intracranial abnormality. Mild chronic microvascular ischemic change with moderate generalized atrophy. TECHNICAL DOCUMENTATION: Quality ID # 436: Final reports with documentation of one or more dose reduction techniques (e.g., Automated exposure control, adjustment of the mA and/or kV according to patient size, use of iterative reconstruction technique) copyright 2011 [employer]- All Rights Reserved
--- NOTE | 2019-05-22 21:57 | RADIOLOGY REPORT (SQ) ---
EXAM DESCRIPTION: CT CERVICAL SPINE WITHOUT IV CONTRAST COMPLETED DATE/TME: 05/22/2019 00:00 CLINICAL HISTORY: 84 years, Male, Fall, AMS COMPARISON: None. TECHNIQUE: Noncontrast CT cervical spine was performed. Coronal and sagittal reformations were created. Images stored on PACS. All CT scanners at this facility use dose modulation, iterative reconstruction, and/or weight based dosing when appropriate to reduce radiation dose to as low as reasonably achievable (ALARA). [facility]: Dose Right [facility]: CareDose [facility]: Dose Right [facility]: Teradose 4D [facility]: [employer] LIMITATIONS: None. FINDINGS: Limited evaluation of the posterior fossa reveals no suspicious abnormality. Occipital condyles are normal. Lateral masses of C1 and C2 align properly. Base and tip of the dens are intact. Craniocervical alignment is maintained. Grade 1 anterolisthesis of C3 upon C4 and C4 upon C5. Otherwise, mild/moderate multilevel cervical spondylosis is noted, designated by multilevel intervertebral space narrowing, hypertrophic endplate spurring, and facet hypertrophy. This is most pronounced spanning C5-C7. Otherwise, no definite acute fracture is noted. Visualized lung apices reveals biapical scarring. Calcifications about the bilateral carotid bulbs extending to the proximal internal carotid arteries. IMPRESSION: No acute fracture. Otherwise, mild/moderate multilevel cervical spondylosis with multilevel spondylolisthesis, as above described. TECHNICAL DOCUMENTATION: Quality ID # 436: Final reports with documentation of one or more dose reduction techniques (e.g., Automated exposure control, adjustment of the mA and/or kV according to patient size, use of iterative reconstruction technique) copyright 2011 [employer]- All Rights Reserved
[2019-05-22 22:09] LABS: ABSOLUTE LYMPHOCYTES (AUTO) 0.5 10^3/uL (0.5-4.7); ABSOLUTE MONOCYTES (AUTO) 1.1 10^3/uL (0.1-1.4); ABSOLUTE NEUT (AUTO) 6.5 10^3/uL (1.7-8.2); BASOPHILS % (AUTO) 0.3 % (0-2); EOSINOPHILS % (AUTO) 0.2 % (0-6); HEMATOCRIT 37.9 % (37.9-51.0); LYMPHOCYTES % (AUTO) 5.7 % (13-45); MEAN CORPUSCULAR HEMOGLOBIN 33.6 pg (27.0-33.4); MEAN CORPUSCULAR HGB CONC 34.3 g/dL (32.0-36.0); MEAN CORPUSCULAR VOLUME 98 fl (80-97); MONOCYTES % (AUTO) 13.8 % (3-13); PLATELET COUNT 227 10^3/uL (150-450); RED BLOOD COUNT 3.88 10^6/uL (4.35-5.55); RED CELL DISTRIBUTION WIDTH 13.3 % (11.5-14.0); TOTAL CELLS COUNTED % (AUTO) 100 %; WHITE BLOOD COUNT 8.1 10^3/uL (4.0-10.5)
[2019-05-22 22:29] LABS: ALBUMIN 3.7 g/dL (3.5-5.0); ALKALINE PHOSPHATASE 48 U/L (38-126); ANION GAP 7 (5-19); ASPARTATE AMINO TRANSFERASE 57 U/L (17-59); BILIRUBIN,TOTAL 0.7 mg/dL (0.2-1.3); BLOOD UREA NITROGEN 39 mg/dL (7-20); CALCIUM 9.1 mg/dL (8.4-10.2); CARBON DIOXIDE 30 mmol/L (22-30); CHLORIDE 99 mmol/L (98-107); GLUCOSE 118 mg/dL (75-110); POTASSIUM 4.5 mmol/L (3.6-5.0); TOTAL PROTEIN 6.2 g/dL (6.3-8.2)
--- NOTE | 2019-05-22 22:29 | EKG REPORT ---
SEVERITY:- ABNORMAL ECG - SINUS RHYTHM FIRST DEGREE AV BLOCK IVCD LEFT AXIS DEVIATION : Confirmed by: Maria Elena Armstrong 22-May-2019 22:28:44
--- NOTE | 2019-05-22 23:18 | RADIOLOGY REPORT (SQ) ---
EXAM DESCRIPTION: X-RAY CHEST- One View CLINICAL HISTORY: Cough COMPARISON: None available TECHNIQUE: Single view of the chest. FINDINGS: There are overlying EKG leads. There are mild patchy perihilar opacities. The pulmonary vascularity is normal. The trachea appears deviated rightward, a nonspecific finding. The cardiomediastinal silhouette is borderline enlarged. The thoracic aorta is tortuous appearing with atherosclerotic vascular disease. Right chest wall battery pack is present and partially obscures the right hemithorax. No suspicious lytic or blastic osseous lesions are identified. IMPRESSION: 1. Mild perihilar patchy opacities are nonspecific and may represent pulmonary vascular congestion. Clinical correlation is advised. 2. Tortuous appearing thoracic aorta demonstrating atherosclerotic vascular disease.
[2019-05-22 23:47] LABS: APPEARANCE,URINE CLEAR; BILIRUBIN,URINE NEGATIVE (NEGATIVE); COLOR,URINE YELLOW; GLUCOSE, URINE NEGATIVE (NEGATIVE); KETONES,URINE TRACE mg/dL (NEGATIVE); LEUKOCYTE ESTERASE,URINE NEGATIVE (NEGATIVE); NITRITE,URINE NEGATIVE (NEGATIVE); PROTEIN,URINE NEGATIVE (NEGATIVE); URINE SPECIFIC GRAVITY 1.023; UROBILINOGEN,URINE NEGATIVE mg/dL (<2.0)
[2019-05-22 23:55] LABS: A TYPE INFLUENZA AG NEGATIVE (NEGATIVE); B INFLUENZA AG NEGATIVE (NEGATIVE)
[2019-05-22] MEDS ORDERED: NORMAL SALINE 1000 ML 1,000 ML IV ONE (23:57)
--- NOTE | 2019-05-23 00:18 | ER Document Report ---
Entered by JOSÉ MIGUEL NAVA SCRIBE 05/22/19 [id number] Acting as scribe for:KATE MAYERS IV, MD ED General - General Chief Complaint: Altered Mental Status Stated Complaint: FALL/BODY PAIN Time Seen by Provider: 05/22/19 22:50 Primary Care Provider: BLAYNE SIMS FNP-BC [Primary Care Provider] - Follow up as needed Information source: Patient Notes: 84-year-old male presents to the emergency department with an altered mental status that began later this evening. Patient's home health care physician explained that patient was last known at baseline last night when she left his residence. Patient's home health care physician explains that she found patient laying on the floor when she arrived at 8:30 AM. She explains that during the fall he hit his arm but she could not say how long he had been laying on the floor. She further explains that after cleaning the patient, they had a normal routine and went to the store. Patient ate and drank as normal. Patient's home health care physician said that she started noticing patient having "crackling" and shortness of breath around their bedtime routine. She stated that that patient was "burning up" and was wheezing. Patient's home health care physician said that she called EMS "just to be safe". Patient's home health care physician mentions that patient's daughter has been diagnosed two days ago with community-acquired pneumonia with pending results for COVID-19. DDx: accidental fall, UTI, electrolyte abnormalities, HTN TRAVEL OUTSIDE OF THE [place] IN LAST 30 DAYS: No - Related Data Allergies/Adverse Reactions: latex [Latex] Allergy (Severe, Verified 01/12/16 17:48) Sulfa (Sulfonamide Antibiotics) Allergy (Verified 01/12/16 17:48) Past Medical History - General Information source: Patient - Social History Smoking Status: Never Smoker Cigarette use (# per day): No Chew tobacco use (# tins/day): No Frequency of alcohol use: None Drug Abuse: None Family History: Reviewed & Not Pertinent Patient has suicidal ideation: No Patient has homicidal ideation: No - Past Medical History Cardiac Medical History: Reports: Hx Hypercholesterolemia, Hx Hypertension - medicated Musculoskeletal Medical History: Reports Hx Arthritis Past Surgical History: Reports: Hx Appendectomy - Immunizations Hx Diphtheria, Pertussis, Tetanus Vaccination: Yes Review of Systems - Review of Systems Constitutional: See HPI, Fever EENT: No symptoms reported Cardiovascular: No symptoms reported Respiratory: See HPI, Short of breath, Wheezing Gastrointestinal: No symptoms reported Genitourinary: No symptoms reported Male Genitourinary: No symptoms reported Musculoskeletal: No symptoms reported Skin: No symptoms reported Hematologic/Lymphatic: No symptoms reported Neurological/Psychological: No symptoms reported -: Yes All other systems reviewed and negative Physical Exam - Vital signs Vitals: Temp Resp Pulse Ox 98.4 F 22 H 93 05/22/19 21:04 05/22/19 21:04 05/22/19 21:04 - Notes Notes: Physical Exam: General: Alert, appears well. HEENT: Normocephalic. Atraumatic. PERRL. Extraocular movements intact. Oropharynx clear. Neck: Supple. Non-tender. Respiratory: No respiratory distress. Clear and equal breath sounds bilaterally. Cardiovascular: Regular rate and rhythm. Abdominal: Normal Inspection. Non-tender. No distension. Normal Bowel Sounds. Back: No gross abnormalities. Extremities: Moves all four extremities. Upper extremities: Normal inspection. Normal ROM. Lower extremities: Normal inspection. No edema. Normal ROM. Neurological: Normal cognition. AAOx4. Normal speech. Mild physical agitation. Psychological: Normal affect. Normal Mood. Skin: Warm. Dry. Normal color. Course - Re-evaluation Re-evalutation: 05/23/19 01:30 Results of ED MSE discussed with patient's caregiver. All questions were answered prior to discharge. Emergency signs and symptoms, reasons to return to the emergency department discussed with caregiver. 05/23/19 02:52 All findings of ED MSE discussed with the patient's daughter by phone. This MD tried to reassure the patient's daughter that there does not seem to be any evidence of a acute medical emergency at this time. - Vital Signs Vital signs: Temp Pulse Resp BP Pulse Ox 98.4 F 83 17 134/67 H 93 05/22/19 21:04 05/22/19 21:31 05/23/19 01:01 05/23/19 01:01 05/23/19 01:01 - Laboratory Result Diagrams: 05/22/19 21:51 05/22/19 21:51 Laboratory results interpreted by me: 05/22/19 05/22/19 05/22/19 21:51 21:51 21:51 RBC 3.88 L Hgb 13.0 L MCV 98 H MCH 33.6 H Lymph % (Auto) 5.7 L Jack % (Auto) 13.8 H Seg Neutrophils % 80.0 H Sodium 135.6 L BUN 39 H Glucose 118 H Creatine Kinase 800 H Total Protein 6.2 L Urine Ketones 05/22/19 23:22 RBC Hgb MCV MCH Lymph % (Auto) Jack % (Auto) Seg Neutrophils % Sodium BUN Glucose Creatine Kinase Total Protein Urine Ketones TRACE H - EKG Interpretation by Me Additional EKG results interpreted by me: 05/23/19 01:32 EKG obtained on 05/22/2019 at 2114 hrs. was interpreted by this MD. Findings: Sinus rhythm, first-degree AV block is present, rate 82, normal axis, P waves proceed QRS complexes, QRS complexes significant for left bundle branch block which was present on the patient's EKG of 03/30/2019. There are no obvious ST segment elevations or depressions present to suggest acute myocardial ischemia or infarction. Impression sinus rhythm with first-degree AV block, incomplete left bundle branch block and nonspecific ST segment. Discharge - Discharge Clinical Impression: H/O Parkinson's disease Accidental fall Qualifiers: Encounter type: initial encounter Qualified Code(s): W19.XXXA - Unspecified fall, initial encounter Condition: Good Disposition: HOME, SELF-CARE Additional Instructions: Return to the Emergency Department without delay if any worse. Parkinson's Disease Parkinson's Disease is caused by loss of dopamine from specific areas of the brain. It usually starts later in life. Parkinson's Disease is a degenera tive problem, and there is no permanent cure. The disease usually gets worse with time, but it's hard to tell how quickly the disease will advance. Many patients live a long, happy, and normal life despite symptoms of Parkinson's. Symptoms of Parkinson's Disease can include tremor in the hands, bobbing head motion, rigid muscles, and difficulty with walking and speech. Medicines such as levodopa, carbidopa, amantadine, bromocriptine, and aldepryl can decrease symptoms, but they do not cure the disease. Take frequent rest breaks during the day. Also, get regular moderate exercise to keep muscle tone and cardiovascular health. You will need close follow-up with your doctor to match your medication schedule to the symptoms. HOME CARE INSTRUCTIONS & INFORMATION: Thank you for choosing us for your medical needs. We hope you're satisfied with the care you received. After you leave, you must properly care for your problem and, at the same time, observe its progress. Any condition can change. Some illnesses can change rapidly over hours or days. If your condition worsens, return to the Emergency Department or see your physician promptly. ABOUT YOUR X-RAYS AND EKG'S: If you had an EKG or X-rays taken, they have been read by the Emergency Physician. The X-rays and EKG's will also be read by a Radiologist or Chemicals Fermentation Operator within 24 hours. If discrepancies are noted, you will be notified by telephone. Please be certain the ED has a correct telephone number & address where you can be reached. Also, realize that some fractures or abnormalities do not show up on initial X-rays. If your symptoms continue, see your physician. ABOUT YOUR LABORATORY TEST: If you had laboratory tests, the results have been reviewed by the Emergency Physician. Some test results (for example cultures) may not be available for several days. You will be contacted if any test result shows you need additional treatment. Please be certain the ED has a correct telephone number and address where you can be reached. ABOUT YOUR MEDICATIONS: You will receive instructions on how to take your medicine on the prescription label you receive. Additional information may be provided by the Pharmacy. If you have questions afterwards, call the ED for clarification or further instructions. Some prescribed medications may cause drowsiness. Do not perform tasks such as driving a car or operating machinery without consulting your Pharmacist. If you feel you need a refill of pain me dication, your condition will need re-evaluation. Please do not call for a refill of any medication. ABOUT YOUR SIGNATURE: Signature of this document acknowledges to followin. Understanding that you received emergency treatment and that you may be released before al medical problems are known or treated. Please be certain the ED has a correct phone number & address where you can be reached. 2. Acknowledgement that you will arrange for follow-up care as recommended. 3. Authorization for the Emergency Physician to provide information to your follow-up Physician in order to maximize your care. AT ANY TIME, IF YOUR SYMPTOMS CHANGE SIGNIFICANTLY OR WORSEN OR YOU DEVELOP NEW SYMPTOMS, RETURN TO THE EMERGENCY DEPARTMENT IMMEDIATELY FOR RE-EVALUATION. OUR GOAL IS TO PROVIDE EXCELLENT MEDICAL CARE! WE HOPE THAT WE HAVE MET YOUR EXPECTATIONS DURING YOUR EMERGENCY DEPARTMENT VISIT AND THAT YOU FEEL YOU HAVE RECEIVED EXCELLENT CARE! Referrals: BLAYNE SIMS, ETHNIC ORIGINS TEACHER-BC [Primary Care Provider] - Follow up as needed I personally performed the services described in the documentation, reviewed and edited the documentation which was dictated to the scribe in my presence, and it accurately records my words and actions.
[2019-05-24 17:12] VITALS: BP 149/67
== END 2019-05-24 17:12 | disposition home or self-care (01) ==
LOC: ER 21:00
DX: R41.82 Altered mental status, unspecified (principal); G20 Parkinson's disease; I44.0 Atrioventricular block, first degree; I10 Essential (primary) hypertension; W19.XXXA Unspecified fall, initial encounter; Y92.009 Unspecified place in unspecified non-institutional (private) residence as the place of occurrence of the external cause; Z88.2 Allergy status to sulfonamides; Z88.8 Allergy status to other drugs, medicaments and biological substances
CPT/HCPCS: 36415; 70450; 71045; 72125; 80053; 81001; 82550; 83605; 84484; 85025; 87804; 93005; 93010; 96360; 99285; J7030

== ENCOUNTER 2019-06-03 16:40 | Emergency (ER) | payer MEDICARE, OTHER ==
--- NOTE | 2019-06-03 17:25 | ER Document Report ---
ED General - General Chief Complaint: Urinary Problem Stated Complaint: URINARY PROBLEM Time Seen by Provider: 06/03/19 17:03 Primary Care Provider: BLAYNE SIMS FNP-BC [Primary Care Provider] - Follow up as needed Mode of Arrival: Wheelchair Information source: Patient, Relative - And his daughter, . Office Notes: 84-year-old male arrives by wheelchair from [facility] area after he was evaluated by his PCP because of a bladder infection and cough and cold symptoms for 1 week. He reports that he has productive cough. His daughter also has had a cough for similar time periods and has been self quarantine because of coronavirus outbreak at this time in this [place]. Patient has a history of Parkinson's disease poorly controlled despite having a right chest stimulator. TRAVEL OUTSIDE OF THE [place] IN LAST 30 DAYS: No - HPI Onset: Last week Onset/Duration: Persistent Quality of pain: Achy Severity: Mild Pain Level: 1 Associated symptoms: Productive cough, Nausea, Weakness Exacerbated by: Movement Relieved by: Denies Similar symptoms previously: No Recently seen / treated by doctor: Yes - Related Data Allergies/Adverse Reactions: latex [Latex] Allergy (Severe, Verified 06/03/19 16:57) Sulfa (Sulfonamide Antibiotics) Allergy (Verified 06/03/19 16:57) Past Medical History - General Information source: Patient, Parent - Social History Smoking Status: Former Smoker Cigarette use (# per day): No Chew tobacco use (# tins/day): No Smoking Education Provided: No Frequency of alcohol use: None Drug Abuse: None Lives with: Family Family History: Reviewed & Not Pertinent Patient has suicidal ideation: No Patient has homicidal ideation: No - Past Medical History Cardiac Medical History: Reports: Hx Hypercholesterolemia, Hx Hypertension - medicated Denies: Hx Coronary Artery Disease, Hx Heart Attack Pulmonary Medical History: Denies: Hx Asthma, Hx Bronchitis, Hx COPD, Hx Pneumonia Neurological Medical History: Denies: Hx Cerebrovascular Accident, Hx Seizures GI Medical History: Denies: Hx Hepatitis, Hx Hiatal Hernia, Hx Ulcer Musculoskeletal Medical History: Reports Hx Arthritis Infectious Medical History: Denies: Hx Hepatitis Past Surgical History: Reports: Hx Appendectomy. Denies: Hx Open Heart Surgery, Hx Pacemaker - Immunizations Hx Diphtheria, Pertussis, Tetanus Vaccination: Yes Review of Systems - Review of Systems Constitutional: See HPI, Fever, Malaise EENT: No symptoms reported Cardiovascular: No symptoms reported, Other - Patient denies any chest pain despite chest x-ray with fractured ribs Respiratory: See HPI, Cough, Sputum Gastrointestinal: No symptoms reported Genitourinary: No symptoms reported Male Genitourinary: No symptoms reported Musculoskeletal: No symptoms reported Skin: No symptoms reported Hematologic/Lymphatic: No symptoms reported Neurological/Psychological: See HPI, Tremor, Other - Severe tremors of all extremities uncontrollably Physical Exam - Vital signs Vitals: Pulse Ox 96 06/03/19 16:50 Interpretation: Hypoxic - General General appearance: Alert, Anxious In distress: None - HEENT Head: Normocephalic Eyes: Normal Conjunctiva: Normal Extraocular movements intact: Yes Eyelashes: Normal Pupils: PERRL Mouth/Lips: Normal Mucous membranes: Dry Pharynx: Normal Neck: Normal - Respiratory Respiratory status: No respiratory distress Chest status: Nontender Breath sounds: Nonproductive cough Chest palpation: Normal - Cardiovascular Rhythm: Regular Heart sounds: Normal auscultation Murmur: No Friction rub: No Rachel's crunch: No - Abdominal Inspection: Normal Distension: No distension Bowel sounds: Normal Tenderness: Nontender Organomegaly: No organomegaly - Back Back: Normal - Extremities General upper extremity: Other - parkinsonian tremors of all body parts uncontrollable according the patient and he has skin tears to forearm and arm Course - Vital Signs Vital signs: Temp Pulse Resp BP Pulse Ox 98.6 F 71 18 123/93 H 95 06/03/19 20:29 06/03/19 20:29 06/03/19 20:29 06/03/19 20:29 06/03/19 20:29 - Laboratory Laboratory results interpreted by me: 06/03/19 16:50 Urine Protein 30 H Urine Ketones TRACE H Urine Blood MODERATE H Urine Urobilinogen 2.0 H Urine Ascorbic Acid 40 H - Diagnostic Test Radiology reviewed: Reports reviewed Critical Care Note - Critical Care Note Total time excluding time spent on procedures (mins): 90 Comments: I discussed the findings with both patient and also nursing staff arrange for daughter to be spoken to about this patient's case as well. Patient is negative for flu negative for strep he will be checked for coronavirus 19 which is currently a pandemic across the [place] and the world. Patient's chest x-ray with fractures of ribs appear to be old on chest x-ray readings per radiologist today. His urine shows RBCs and calcium oxalate crystals. I advised patient to decreased spinach and leafy vegetables rhubarb wheat bran almonds beets Calcium beings chocolate okra tea strawberries. I spoke with daughter Zohra by eri green since all non pts are at this time to be interactive outside hospital grounds..preferably quarentined at home. I advised her of his labs xray Dx and treatment. Discharge - Discharge Clinical Impression: Parkinsons, Bronchitis UTI (urinary tract infection) Qualifiers: Urinary tract infection type: acute cystitis Hematuria presence: without hematuria Qualified Code(s): N30.00 - Acute cystitis without hematuria Rib fractures Qualifiers: Encounter type: sequela Rib fracture type: multiple ribs Fracture type: closed Laterality: right Qualified Code(s): S22.41XS - Multiple fractures of ribs, right side, sequela Condition: Good Disposition: HOME, SELF-CARE Additional Instructions: Your urine shows RBCs and calcium oxalate crystals. I advised you to decreased spinach and leafy vegetables rhubarb wheat bran almonds beets Calcium beings chocolate okra tea strawberries. Increase your fluid intake like water or Gatorade to help decrease your calcium oxalate crystals in your urine. . Also y our test for flu swab was negative and your strep test was negative. You were tested for coronavirus type 19 which is now pandemic throughout the [place] and the world. This test will take 1-3 days to complete and you and/or daughter will be called if positive. You should be quarantined at this time in case your test comes back positive. We will write for antibiotics and Tessalon Perles for cough. Prescriptions: Benzonatate [Tessalon Perles 100 mg Capsule] 100 mg PO TID #30 capsule Azithromycin [Zithromax 250 mg Tablet] 250 mg PO ASDIR PRN #6 tablet PRN Reason: Referrals: BLAYNE SIMS FNP-BC [Primary Care Provider] - Follow up as needed
--- NOTE | 2019-06-03 17:29 | RADIOLOGY REPORT (SQ) ---
EXAM DESCRIPTION: CHEST SINGLE VIEW COMPLETED DATE/TIME: 06/03/2019 5:08 pm REASON FOR STUDY: SOB COMPARISON: AP view of the chest from 05/22/2019 EXAM PARAMETERS: NUMBER OF VIEWS: One view. TECHNIQUE: An AP view of the chest was obtained. RADIATION DOSE: NA LIMITATIONS: None. FINDINGS: LUNGS AND PLEURA: Low inspiratory lung volumes without a superimposed consolidation, pleur al effusion or pneumothorax. MEDIASTINUM AND HILAR STRUCTURES: Stable mediastinal and hilar contours. HEART AND VASCULAR STRUCTURES: The cardiac silhouette and pulmonary vasculature are within normal quintero its. BONES: Chronic fracture deformities of several posterior right-sided ribs. HARDWARE: Generator that projects over the superior right hemithorax. OTHER: No other finding. IMPRESSION: No acute cardiopulmonary process. TECHNICAL DOCUMENTATION: JOB ID: [id number] [employer]- All Rights Reserved Reading location - IP/workstation name: [email or web address]
[2019-06-03 17:32] LABS: APPEARANCE,URINE SLIGHTLY-CLOUDY; BILIRUBIN,URINE NEGATIVE (NEGATIVE); CALCIUM OXALATE CRYSTALS,URINE TOO NUMEROUS TO CNT /HPF; COLOR,URINE YELLOW; GLUCOSE, URINE NEGATIVE (NEGATIVE); KETONES,URINE TRACE mg/dL (NEGATIVE); LEUKOCYTE ESTERASE,URINE NEGATIVE (NEGATIVE); NITRITE,URINE NEGATIVE (NEGATIVE); PROTEIN,URINE 30 mg/dL (NEGATIVE); URINE SPECIFIC GRAVITY 1.027
[2019-06-03 17:43] LABS: A TYPE INFLUENZA AG NEGATIVE (NEGATIVE); B INFLUENZA AG NEGATIVE (NEGATIVE)
[2019-06-03 20:32] VITALS: BP 123/93
== END 2019-06-03 20:29 | disposition home or self-care (01) ==
LOC: ER 16:40
DX: Z20.828 Contact with and (suspected) exposure to other viral communicable diseases (principal); N30.00 Acute cystitis without hematuria; J40 Bronchitis, not specified as acute or chronic; G20 Parkinson's disease; S22.41XS Multiple fractures of ribs, right side, sequela; X58.XXXS Exposure to other specified factors, sequela; R11.0 Nausea; R53.1 Weakness; R50.9 Fever, unspecified; E78.00 Pure hypercholesterolemia, unspecified; I10 Essential (primary) hypertension; Z91.040 Latex allergy status; Z88.2 Allergy status to sulfonamides
CPT/HCPCS: 71045; 81001; 87070; 87635; 87804; 87880; 99284